=== PATIENT | female | born 1955 | race Caucasian/White ===

== ENCOUNTER 2017-11-02 15:21 | Inpatient (IN) | payer OTHER ==
[~2017-11-02] VITALS: Ht 160 cm; Wt 132.0 kg
[~2017-11-02 15:21] MED LIST: ADVAIR DISKUS 21 DSK INH; APA PO; ASPIRIN CHILDRE81 MG PO; AUGMENTIN 875 M1 TAB PO; CALCIUM PO; FLUOXETINE20 MG PO; GLUCOSAMINE SU500 M2 PO; HYDROCODON-ACETAMINO; HYDROCODONE PO; HYDRODIURIL 2525 MG PO; LISINOPRIL10 MG PO; MONTELUKAST SOD10 MG PO; MOTRIN 400MG (400 MG PO; NEXIUM 40MG40 MG PO; OXYCODONE5 MG PO; OXYCONTIN20 MG PO; PROZAC40 MG PO; Robitussin AC PO; SIMVASTATIN40 MG PO; VENTOLIN H0.09 MG/Ac INH; VICODIN7.5-300 PO
[2017-11-02 16:59] LABS: ABSOLUTE BASOPHIL COUNT 0.2 /CUMM (0.0-0.2); ABSOLUTE EOSINOPHIL COUNT 0.1 /CUMM (0.0-0.7); ABSOLUTE GRANULOCYTE CT 10.5 /CUMM (1.4-6.5); ABSOLUTE LYMPH COUNT 2.3 /CUMM (1.2-3.4); ABSOLUTE MONOCYTE COUNT 1.1 /CUMM (0.10-0.60); BASOPHIL % 1.1 % (0.0-2.0); EOSINOPHIL % 0.5 % (0-5); GRANULOCYTE % 74.4 % (42.2-75.2); MEAN CORPUSCULAR HGB 29.1 PG (27.0-31.0); MEAN CORPUSCULAR HGB CONC 33.4 G/DL (33.0-37.0); MEAN PLATELET VOLUME 8.2 FL (7.4-10.4); PLATELET COUNT 405 /CUMM (130-400); RBC DISTRIBUTION WIDTH 13.8 % (11.5-14.5); RED BLOOD CELL CT 4.49 /CUMM (4.20-5.40); WHITE BLOOD CELL COUNT 14.1 /CUMM (4.8-10.8)
--- NOTE | 2017-11-02 17:15 | ED SKIN/ALLERGY COMPLAINT ---
History of Present Illness General Chief Complaint: General Adult Stated Complaint: INFECTION AT INJECTION SITE Source: patient Exam Limitations: no limitations Vital Signs & Intake/Output Vital Signs & Intake/Output Vital Signs Date Time Temp Pulse Resp B/P B/P Pulse O2 O2 Flow FiO2 Mean Ox Delivery Rate 11/03 0629 97.8 60 18 114/68 95 Room Air 11/02 2127 98.1 78 20 130/72 98 Room Air 11/028 97.1 80 18 114/60 97 Room Air 11/02 1833 84 18 124/60 97 11/02 1534 98.3 81 15 137/86 98 Room Air Room Air ED Intake and Output 11/03 0000 11/02 1200 Intake Total 340 Output Total Balance 340 Intake, IV 100 Intake, Oral 240 Patient 291 lb Weight Weight Reported by Patient Measurement Method Triage Note: PT TO ED FOR C/C OF ?ABCESS TO R BUTT CHEEK AREA. PT HAD AN INJECTION DONE FOR HER BACK LAST SATURDAY AND PAIN STARTED SATURDAY. PT SPOKE WITH HER DOCTOR AND PUT PT ON ANTIBIOTICS (PT HAS BEEN ON ANTIBIOTICS X 48 HOURS). PT NOT SEEING AN IMPROVEMENT AND REPORTS ITS GETTING WORSE. PT REPORTS SUBJECTIVE 100.2-100.4 TEMPS AT HOME. AFEBRILE IN TRIAGE. Triage Nurses Notes Reviewed? yes Onset: Gradual Duration: getting worse Timing: recent history Severity: moderate Severity Numbers: 5 Location: torso HPI: Patient is a 62-year-old female with a past medical history of chronic back pain , hyperlipidemia, depression, hypertension, GERD and COPD and sleep apnea who presents emergency room saying that 8 days ago patient had her first injection to her RIGHT LATERAL back/MUSCLE REGION performed (OF UNKNOWN MEDICATION) by her painter spray with the injection was to the right lateral aspect of her lumbar spine where she states that the procedure went well however 2 days later on Saturday patient began having gradual onset of gluteal right-sided pain and swelling or patient followed up with her primary care doctor on October 31, 3 days ago and was concerns of infection in which she was administered Keflex. Patient has been compliant with medications and states that today she had a 100.5 temperature and worsening pain and swelling noted by . Patient denies any worsening back pain from her baseline (Kirstie CROW,Ariel) Allergies Coded Allergies: ceftriaxone (Intermediate, ITCHY, RED LINE UP ARM 11/02/17) sulfite (Intermediate, HIVES 11/02/17) Reconcile Medications Albuterol Sulfate (Proair Hfa) 90 MCG HFA.AER.AD 2 PUF INH AD PRN RESP. ( Reported) Alprazolam 0.5 MG TABLET 1 TAB PO AD PRN ANXIETY (Reported) Aspirin (Ecotrin*) 81 MG TABLET.DR 1 TAB PO DAILY HEART/BLOOD (Reported) Calcium (Elemental-Fr Calcarb) (Calcium Carbonate) 600 MG CALCIUM (1,500 MG) TABLET 2 TAB PO DAILY SUPPLEMENT (Reported) Cephalexin 500 MG CAPSULE 1 CAP PO Q6H ANTIBIOTIC (Reported) Cetirizine HCl (Zyrtec) 10 MG TABLET 1 TAB PO QAM ALLERGIES (Reported) Cyclobenzaprine HCl 5 MG TABLET 1 TAB PO TID PRN MUSCLE SPASMS (Reported) Docusate Sodium (Colace Clear) 50 MG CAPSULE 250 MG PO BID STOOL SOFTENER ( Reported) Ergocalciferol (Vitamin D2) (Vitamin D2) 50,000 UNIT CAPSULE 1 CAP PO QSUN SUPPLEMENT (Reported) Esomeprazole (Nexium) 40 MG CAPSULE.DR 1 CAP PO QAM GI (Reported) Fluoxetine HCl 20 MG CAPSULE 1 CAP PO QAM MENTAL HEALTH (Reported) Fluticasone/Salmeterol (Advair 250-50 Diskus) 250 MCG-50 MCG/DOSE BLST.W.DEV 1 PUF INH BID RESP. (Reported) Glucosamine Sulfate 1,000 MG CAPSULE 1 CAP PO BID SUPPLEMENT (Reported) Hydrochlorothiazide 25 MG TABLET 1 TAB PO QAM BP (Reported) Lidocaine/Prilocaine (Lidocaine-Prilocaine Cream) 2.5 %-2.5 % CREAM..G. 1 NANCY TOP AD PRN BACK PAIN (Reported) Lisinopril 10 MG TABLET 1 TAB PO QAM BP (Reported) Montelukast Sodium 10 MG TABLET 1 TAB PO QPM RESP. (Reported) Multiple Vitamin (Multivitamins) 1 EACH TABLET 1 TAB PO QAM SUPPLEMENT ( Reported) Oxycodone HCl (Oxycontin) 20 MG TAB.ER.12H 1 TAB PO BID PAIN (Reported) Oxycodone HCl/Acetaminophen (Percocet 7.5-325 MG Tablet) 7.5 MG-325 MG TABLET 1 TAB PO Q4H PRN PAIN (Reported) Pregabalin (Lyrica) 75 MG CAPSULE 1 CAP PO TID NERVE PAIN (Reported) Sennosides (Senna) 8.6 MG TABLET 2 TAB PO BID GI (Reported) Simvastatin (Simvastatin*) 40 MG TABLET 1 TAB PO QPM CHOLESTEROL (Reported) (Karly PEDERSEN,Mir Goldberg) Past History Travel History Traveled to [place] past 21 day No Medical History Any Pertinent Medical History? see below for history EENT: allergies Cardiovascular: hypertension, hyperlipidemia Respiratory: asthma Gastrointestinal: GERD Musculoskeletal: CHRONIC LOW BACK PAIN Psychiatric: anxiety Blood Disorders: NONE Cancer(s): NONE History of MRSA: No History of VRE: No History of CDIFF: No Influenza Vaccine: 08/04/14 Surgical History Surgical History: non-contributory Psychosocial History Who do you live with Family Services at Home None What is your primary language Occitan Tobacco Use: Quit >30 days ago ETOH Use: denies use Illicit Drug Use: denies illicit drug use Family History Family History, If Any: FATHER FH: pancreatic cancer, Onset: 60+. UNCLE FH: lung cancer, Onset: 60+. FH: pancreatic cancer, Onset: 60+. MOTHER FH: diabetes mellitus MOTHER Hx Contributory? No (Ariel Trejo) Review of Systems Review of Systems Constitutional: Reports: see HPI, fever. EENTM: Reports: no symptoms. Respiratory: Reports: no symptoms. Cardiovascular: Reports: no symptoms. GI: Reports: no symptoms. Genitourinary: Reports: no symptoms. Musculoskeletal: Reports: no symptoms. Skin: Reports: see HPI. Neurological/Psychological: Reports: no symptoms. Hematologic/Endocrine: Reports: no symptoms. Immunologic/Allergic: Reports: no symptoms. All Other Systems: Reviewed and Negative (Ariel Trejo) Physical Exam Physical Exam General Appearance: no apparent distress, obese Head: atraumatic, normal appearance, active bleeding, evidence of injury, Waterman 's Sign, contusions, ecchymosis, flap, lacerations, raccoon eyes, swelling, tenderness Eyes: Bilateral: normal appearance. Ears, Nose, Throat: hearing grossly normal Neck: normal inspection Respiratory: no respiratory distress Cardiovascular: regular rate/rhythm Extremities: normal capillary refill, normal range of motion Neurologic/Psych: no motor/sensory deficits, awake Skin: intact Diagram Body: 1) Noted erythema warmth and tenderness no fluctuance no induration skin intact no discharge (Ariel Trejo) Progress Differential Diagnosis: abscess/cellulitis, anaphylaxis, drug reaction, shingles , urticaria Plan of Care: Orders Procedure Date/time Status Heart Healthy Diet 11/03 B Active US-SUPERFICIAL IMAGING EXTREMI 11/03 0600 Active CBC WITHOUT DIFFERENTIAL 11/03 06 Active BASIC ELECTROLYTES PLUS BUN&CR 11/03 0600 Active MISSING MEDICATION FORM 11/03 0030 Active Vital Signs 11/02 2352 Active Teach/Educate 11/02 2352 Active Pain Treatment and Response 11/02 2352 Active Nutritional Intake, Monitor 11/02 2352 Active Isolation 11/02 2352 Active Intake & Output 11/02 235 Active Patient Care Conference 11/02 235 Active Activity/Ambulation 11/02 235 Active Vital Signs 11/02 2122 Active Teach/Educate 11/02 2122 Active Pain Treatment and Response 11/02 2122 Active Nutritional Intake, Monitor 11/02 2122 Active Isolation 11/02 2122 Active Intake & Output 11/02 2122 Active Patient Care Conference 11/02 2122 Active Activity/Ambulation 11/02 2122 Active Patient Data 11/02 1913 Active ED Holding Orders 11/02 1908 Active Admit to inpatient 11/02 1908 Active Vital Signs 11/02 1908 Active Code Status 11/02 1908 Active Intake & Output 11/02 1834 Active EKG 11/02 1727 Active BLOOD CULTURE 11/02 1623 Active COMPREHENSIVE METABOLIC PANEL 11/02 1622 Complete CBC WITHOUT DIFFERENTIAL 11/02 1622 Complete TRC EVALUATION (GEN) 11/02 UNK Active VTE Mechanical Prophylaxis 11/02 UNK Active Current Medications Sig/J Luis Start time Last Medication Dose Stop Time Status Admin Montelukast Sodium 10 MG QPM 11/03 2200 AC (Singulair) Atorvastatin Calcium 40 MG 1700 11/03 1700 AC (Lipitor) Aspirin Buffered 81 MG DAILY 11/03 1000 AC (Ecotrin) Budesonide/ 2 PUF BID 11/03 1000 AC Formoterol Fumarate (Symbicort) Enoxaparin Sodium 40 MG DAILY 11/03 1000 AC (Lovenox) Fluoxetine HCl 20 MG QAM 11/03 1000 AC (Prozac) Hydrochlorothiazide 25 MG QAM 11/03 1000 AC (Hydrodiuril) Lisinopril 10 MG QAM 11/03 1000 AC (Prinivil) Oxycodone HCl 20 MG BID 11/03 1000 AC (OxyCONTIN) Pregabalin 75 MG TID 11/03 1000 AC (Lyrica) Omeprazole 40 MG DAILY AC 11/03 0700 AC 11/03 (Prilosec) 0552 Heparin Sodium 5,000 UNIT Q8 11/03 06 CAN (Porcine) Ampicillin Sodium/ 1,500 MG Q6 11/02 2359 AC 11/03 Sulbactam Sodium 0551 (Unasyn) Sodium Chloride 100 ML (Normal Saline 0.9%) Alprazolam 0.5 MG AT BEDTIME NEED.. 11/02 2300 AC (Xanax) 11/09 2258 Cyclobenzaprine HCl 5 MG TID PRN 11/02 2300 AC (Flexeril 5MG Tab) Albuterol Sulfate 2 PUF Q4-6 PRN PRN 11/02 2245 AC (Ventolin) Morphine Sulfate 2 MG Q6P PRN 11/02 1945 AC 11/03 (Morphine) 0110 Oxycodone/ 1.5 TAB Q4P PRN 11/02 1945 AC Acetaminophen (Percocet) Oxycodone HCl 7.5 MG ONCE ONE 11/02 1930 CAN (Roxicodone) 11/02 1931 Laboratory Tests 11/02/171644: Anion Gap 12, Estimated GFR > 60, BUN/Creatinine Ratio 25.0, Glucose 104 H, Calcium 10.0, Total Bilirubin 0.5, AST 29, ALT 37, Alkaline Phosphatase 112, Total Protein 7.2, Albumin 3.9, Globulin 3.3, Albumin/Globulin Ratio 1.2, CBC w Diff NO MAN DIFF REQ, RBC 4.49, MCV 87.0, MCH 29.1, RDW 13.8, MPV 8.2, Gran % 74.4, Lymphocytes % 16.4 L, Monocytes % 7.6, Eosinophils % 0.5, Basophils % 1.1 , Absolute Granulocytes 10.5 H, Absolute Lymphocytes 2.3, Absolute Monocytes 1.1 H, Absolute Eosinophils 0.1, Absolute Basophils 0.2, PUBS MCHC 33.4 Microbiology 11/02 1750 BLOOD: Blood Culture - RECD 11/02 1645 BLOOD: Blood Culture - RECD Other differential diagnoses include herpes zoster due to the dermatomal pattern of the erythema however no vesicular findings were noted on exam No concerns of discitis or spinal abscess however this is of my differential. The needle injection site is unremarkable with no surrounding warmth erythema or tenderness Patient has failed outpatient treatment of antibiotics for 3 days and which patient has worsening expansion of her redness swelling and cellulitis and had fever prior to arrival MINIMAL concerns at this time of fluctuance or abscess however this is of my differential diagnosis which patient may require ultrasound or further imaging Initial ED EKG: normal intervals, normal p-waves, normal QRS complex, 79 BPM (Ariel Trejo) Departure Departure Disposition: STILL A PATIENT Condition: Stable Clinical Impression Primary Impression: Cellulitis of buttock, right Referrals: Jose Jernigan MD (PCP/Family) Departure Forms: Customer Survey General Discharge Information Admission Note Spoke With: Matt PEDERSEN,Yara Documentation of Exam: Documentation of any treatments & extenuating circumstances including Concerns Regarding Discharge (functional status, medication knowledge or non-compliance, living conditions, etc.) that warrant an admission rather than observation: [ Patient requires IV antibiotics, repeat labs, infectious disease consultation Patient has failed outpatient treatment of antibiotics prior to arrival] (Ariel Trejo) PA/PRODUCT MGMT DEV MANAGER Co-Sign Statement Statement: ED Attending supervision documentation- [X] I saw and evaluated the patient. I have also reviewed all the pertinent lab results and diagnostic results. I agree with the findings and the plan of care as documented in the PA's/PRODUCT MGMT DEV MANAGER's documentation. X[X] I have reviewed the ED Record and agree with the PA's/PRODUCT MGMT DEV MANAGER's documentation. [] Additions or exceptions (if any) to the PAs/PRODUCT MGMT DEV MANAGER's note and plan are summarized below: [FAILED OUTPATIENT ABX, ADMIT FOR IV ABX, FOLLOW UP CXS, IV FLUIDS] (Karly PEDERSEN,Mir Goldberg)
--- NOTE | 2017-11-02 20:03 | Admission Certification ---
Admission Certification Certification Statement - As attending physician, I certify that at the time of - admission, based on clinical presentation, severity of - symptoms, need for further diagnostic testing and - therapeutic interventions, and risk of adverse outcomes - without in-hospital treatment, in my clinical assessment, - this patient requires an acute hospital stay for a minimum - of two nights or longer. I have also considered psychsocial - factors such as support system, advanced age, financial - issues, cognitive issues, and failed out-patient treatments, - past re-admission history, safety of patient, and lack of - compliance as applicable. Specific rationale supporting this admission is: Right buttock/ thigh postero-inferior aspect cellulitis, failed outpatient antibiotics.
[2017-11-02] MEDS ORDERED: FLUOXETINE HCL20 M2 PO (20:15)
[2017-11-02] MEDS ORDERED: HYDROCHLOROTHIA25 M1 PO (20:17)
[2017-11-02] MEDS ORDERED: CEPHALEXIN500 M3 PO (20:17)
[2017-11-02] MEDS ORDERED: LIDOCAINE-PRILO30 GM TOP (20:18)
[2017-11-02] MEDS ORDERED: ALPRAZOLAM0.5 M4 PO (20:18)
[2017-11-02] MEDS ORDERED: NEXIUM40 M1 PO (20:19)
[2017-11-02] MEDS ORDERED: LISINOPRIL10 M1 PO (20:19)
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
[2017-11-02] MEDS ORDERED: ADVAIR 250-501 EACH INH (20:20)
[2017-11-02] MEDS ORDERED: MONTELUKAST SOD10 M1 PO (20:21)
[2017-11-02] MEDS ORDERED: SIMVASTATIN40 M1 PO (20:21)
[2017-11-02] MEDS ORDERED: PROAIR HFA8.5 GM INH (20:21)
[2017-11-02] MEDS ORDERED: ZYRTEC10 M3 PO (20:22)
[2017-11-02] MEDS ORDERED: ASPIRIN EC81 M1 PO (20:23)
[2017-11-02] MEDS ORDERED: COLACE CLEAR50 MG PO (20:24)
[2017-11-02] MEDS ORDERED: SENNA8.6 M3 PO (20:25)
[2017-11-02] MEDS ORDERED: CALCIUM CARBON600 M1 PO (20:26)
[2017-11-02] MEDS ORDERED: GLUCOSAMINE S1000 MG PO (20:26)
[2017-11-02] MEDS ORDERED: VITAMIN D250000 UNIT PO (20:27)
[2017-11-02] MEDS ORDERED: MULTIVITAMINS1 EAC9 PO (20:27)
[2017-11-02] MEDS ORDERED: PERCOCET 7.5-31 EACH PO (20:28)
[2017-11-02] MEDS ORDERED: OXYCONTIN20 M1 PO (20:29)
[2017-11-02] MEDS ORDERED: CYCLOBENZAPRINE5 M2 PO (20:30)
[2017-11-02] MEDS ORDERED: LYRICA75 M1 PO (20:31)
[2017-11-02 21:27] VITALS: BP 130/72
[2017-11-03 06:29] VITALS: BP 114/68
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
[2017-11-03 09:15] LABS: ABSOLUTE BASOPHIL COUNT 0.1 /CUMM (0.0-0.2); ABSOLUTE EOSINOPHIL COUNT 0.1 /CUMM (0.0-0.7); ABSOLUTE GRANULOCYTE CT 8.7 /CUMM (1.4-6.5); ABSOLUTE LYMPH COUNT 2.5 /CUMM (1.2-3.4); ABSOLUTE MONOCYTE COUNT 0.7 /CUMM (0.10-0.60); BASOPHIL % 0.4 % (0.0-2.0); EOSINOPHIL % 0.7 % (0-5); GRANULOCYTE % 72.5 % (42.2-75.2); HEMATOCRIT 37.9 % (37-47); MEAN CORPUSCULAR HGB 29.3 PG (27.0-31.0); MEAN CORPUSCULAR HGB CONC 33.2 G/DL (33.0-37.0); MEAN CORPUSCULAR VOLUME 88.3 FL (81.0-99.0); MEAN PLATELET VOLUME 8.9 FL (7.4-10.4); PLATELET COUNT 292 /CUMM (130-400); RED BLOOD CELL CT 4.29 /CUMM (4.20-5.40)
--- NOTE | 2017-11-03 14:09 | ULTRASOUND REPORT ---
EXAMINATION: US SUPERFICIAL IMAGING, EXTREMITY CLINICAL INFORMATION: Right gluteal cellulitis. COMPARISON: None TECHNIQUE: Targeted ultrasound of the gluteal region corresponding to the site of right gluteal inflammation, as was pointed out by the patient at the time of the examination. FINDINGS: Corresponding to the site of right gluteal inflammation, redness as was pointed out by the patient at the time of the examination, there is mild diffuse cutaneous, subcutaneous thickening and heterogenicity present, most consistent with cellulitis. Specifically, no underlying focal fluid collection identified. IMPRESSION: No sonographic evidence of any right gluteal abscess.
[2017-11-03 15:36] VITALS: BP 106/60
[2017-11-03 22:48] VITALS: BP 120/80
[2017-11-04 06:53] VITALS: BP 114/66
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
[2017-11-04 09:35] LABS: ABSOLUTE BASOPHIL COUNT 0 /CUMM (0.0-0.2); ABSOLUTE EOSINOPHIL COUNT 0.1 /CUMM (0.0-0.7); ABSOLUTE GRANULOCYTE CT 5.8 /CUMM (1.4-6.5); ABSOLUTE LYMPH COUNT 2.5 /CUMM (1.2-3.4); ABSOLUTE MONOCYTE COUNT 0.3 /CUMM (0.10-0.60); BASOPHIL % 0.4 % (0.0-2.0); GRANULOCYTE % 66.3 % (42.2-75.2); HEMATOCRIT 35.3 % (37-47); MEAN CORPUSCULAR HGB 29.6 PG (27.0-31.0); MEAN CORPUSCULAR HGB CONC 33.6 G/DL (33.0-37.0); MEAN CORPUSCULAR VOLUME 88.2 FL (81.0-99.0); MEAN PLATELET VOLUME 8.6 FL (7.4-10.4); PLATELET COUNT 356 /CUMM (130-400); RBC DISTRIBUTION WIDTH 13.8 % (11.5-14.5); RED BLOOD CELL CT 4.01 /CUMM (4.20-5.40); WHITE BLOOD CELL COUNT 8.8 /CUMM (4.8-10.8)
[2017-11-04 15:09] VITALS: BP 124/63
--- NOTE | 2017-11-04 18:01 | Patient Discharge Instructions ---
Discharge Instructions General Discharge Information You were seen/treated for: Cellulitis of the right buttock region Failed outpatient antibiotics S/P pain injection for sciatica Chronic back pain ROMI on CPAP Special Instructions: - Please follow up with your primary care physician within 1-2 week of discharge. Inform your primary care physician of this admission to [facility]. - Continue your current medications per discharge instructions. - Please watch for these problems: Fever, Chills, Nausea, Vomiting, Shortness of Breath, Productive Cough, Chest Pain/Discomfort, Abdominal Pain, Active Bleeding or Bloody urine/stool. Diet Continue normal diet: Yes Activity Full Activity/No Limits: Yes Acute Coronary Syndrome Inclusion Criteria At DC or during hospital stay patient has or had the following: ACS DIAGNOSIS No Discharge Core Measures Meds if any: Prescribed or Continued at Discharge Meds if any: NOT Prescribed or Continued at Discharge Congestive Heart Failure Inclusion Criteria At DC or during hospital stay patient has or had the following: CHF DIAGNOSIS No Discharge Core Measures Meds if any: Prescribed or Continued at Discharge Meds if any: NOT Prescribed or Continued at Discharge Cerebrovascular accident Inclusion Criteria At DC or during hospital stay patient has or had the following: CVA/TIA Diagnosis No Discharge Core Measures Meds if any: Prescribed or Continued at Discharge Meds if any: NOT Prescribed or Continued at Discharge Venous thromboembolism Inclusion Criteria VTE Diagnosis No VTE Type NONE VTE Confirmed by (Test) NONE Discharge Core Measures - Per Current guidelines, there needs to be overlap - treatment for the first 5 days of Warfarin therapy. - If discharged on Warfarin prior to 5 days of - overlap therapy, the patient will need to be - assessed for post discharge needs including - *Post discharge parental anticoagulation - *Warfarin and/or parental anticoagulation education - *Follow up date to check INR post discharge At least 5 days overlap therapy as Inpatient No Meds if any: Prescribed or Continued at Discharge Note: Overlap Therapy is Warfarin and Anticoagulant Meds if any: NOT Prescribed or Continued at Discharge
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
[2017-11-04 22:17] VITALS: BP 110/70
[2017-11-05 07:01] VITALS: BP 118/70
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
[2017-11-05 09:02] LABS: ABSOLUTE BASOPHIL COUNT 0.1 /CUMM (0.0-0.2); ABSOLUTE EOSINOPHIL COUNT 0.1 /CUMM (0.0-0.7); ABSOLUTE GRANULOCYTE CT 4.8 /CUMM (1.4-6.5); ABSOLUTE LYMPH COUNT 2.4 /CUMM (1.2-3.4); ABSOLUTE MONOCYTE COUNT 0.7 /CUMM (0.10-0.60); BASOPHIL % 0.7 % (0.0-2.0); GRANULOCYTE % 59.9 % (42.2-75.2); HEMATOCRIT 33.3 % (37-47); MEAN CORPUSCULAR HGB 28.9 PG (27.0-31.0); MEAN CORPUSCULAR HGB CONC 32.7 G/DL (33.0-37.0); MEAN CORPUSCULAR VOLUME 88.5 FL (81.0-99.0); MEAN PLATELET VOLUME 8.3 FL (7.4-10.4); PLATELET COUNT 368 /CUMM (130-400); RBC DISTRIBUTION WIDTH 13.5 % (11.5-14.5); RED BLOOD CELL CT 3.77 /CUMM (4.20-5.40); WHITE BLOOD CELL COUNT 8.1 /CUMM (4.8-10.8)
[2017-11-05] MEDS ORDERED: CEPHALEXIN500 M3 PO ×2 (13:30→13:49)
[2017-11-05 15:16] VITALS: BP 138/60
== END 2017-11-05 15:15 | DRG 603 ==
LOC: ERH 15:21 → 2NA 19:08 → ERHI 19:08 → ENRESERV 19:46 → ENTRNSPT 20:34 → EDTRNSPTSTS 20:50 → 2NA 21:04 → CMPTRNSPT 21:28 → 2NA 11-05 07:58 → ENPENDDIS 11-05 13:54 → 2NA 11-05 15:15
PROVIDERS: Internal Medicine; Student in an Organized Health Care Education/Training Program
DX: L03.317 Cellulitis of buttock (principal); E66.01 Morbid (severe) obesity due to excess calories; Z68.43 Body mass index [BMI] 50.0-59.9, adult; F32.9 Major depressive disorder, single episode, unspecified; G47.33 Obstructive sleep apnea (adult) (pediatric); M54.30 Sciatica, unspecified side; I10 Essential (primary) hypertension; J44.9 Chronic obstructive pulmonary disease, unspecified; G89.29 Other chronic pain; M54.9 Dorsalgia, unspecified; K21.9 Gastro-esophageal reflux disease without esophagitis
CPT/HCPCS: 2NAP; 36415; 76881; 82436; 87040; 93005; 93010; J1644; J1650; J3490

== ENCOUNTER 2017-11-09 11:41 | Inpatient (IN) | payer OTHER ==
[~2017-11-09] VITALS: Ht 160 cm; Wt 130.9 kg
[~2017-11-09 11:41] MED LIST changes: +ADVAIR 250-501 EACH INH; +ALPRAZOLAM0.5 M4 PO; +ASPIRIN EC81 M1 PO; +CALCIUM CARBON600 M1 PO; +CEPHALEXIN500 M3 PO; +COLACE CLEAR50 MG PO; +CYCLOBENZAPRINE5 M2 PO; +FLUOXETINE HCL20 M2 PO; +GLUCOSAMINE S1000 MG PO; +HYDROCHLOROTHIA25 M1 PO; +LIDOCAINE-PRILO30 GM TOP; +LISINOPRIL10 M1 PO; +LYRICA75 M1 PO; +MONTELUKAST SOD10 M1 PO; +MULTIVITAMINS1 EAC9 PO; +NEXIUM40 M1 PO; +OXYCONTIN20 M1 PO; +PERCOCET 7.5-31 EACH PO; +PROAIR HFA8.5 GM INH; +SENNA8.6 M3 PO; +SIMVASTATIN40 M1 PO; +VITAMIN D250000 UNIT PO; +ZYRTEC10 M3 PO
--- NOTE | 2017-11-09 12:13 | ED SKIN/ALLERGY COMPLAINT ---
See Addendum History of Present Illness General Chief Complaint: Skin Rash/ Abcess Stated Complaint: ABCESS Source: patient, old records Exam Limitations: no limitations Allergies Coded Allergies: ceftriaxone (Intermediate, ITCHY, RED LINE UP ARM 11/02/17) sulfite (Intermediate, HIVES 11/02/17) Reconcile Medications Albuterol Sulfate (Proair Hfa) 90 MCG HFA.AER.AD 2 PUF INH AD PRN RESP. ( Reported) Alprazolam 0.5 MG TABLET 1 TAB PO AD PRN ANXIETY (Reported) Aspirin (Ecotrin*) 81 MG TABLET.DR 1 TAB PO DAILY HEART/BLOOD (Reported) Calcium (Elemental-Fr Calcarb) (Calcium Carbonate) 600 MG CALCIUM (1,500 MG) TABLET 2 TAB PO DAILY SUPPLEMENT (Reported) Cephalexin 500 MG CAPSULE 1 CAP PO Q6H Cellulitis . Cetirizine HCl (Zyrtec) 10 MG TABLET 1 TAB PO QAM ALLERGIES (Reported) Cyclobenzaprine HCl 5 MG TABLET 1 TAB PO TID PRN MUSCLE SPASMS (Reported) Docusate Sodium (Colace Clear) 50 MG CAPSULE 250 MG PO BID STOOL SOFTENER ( Reported) Ergocalciferol (Vitamin D2) (Vitamin D2) 50,000 UNIT CAPSULE 1 CAP PO QSUN SUPPLEMENT (Reported) Esomeprazole (Nexium) 40 MG CAPSULE.DR 1 CAP PO QAM GI (Reported) Fluoxetine HCl 20 MG CAPSULE 1 CAP PO QAM MENTAL HEALTH (Reported) Fluticasone/Salmeterol (Advair 250-50 Diskus) 250 MCG-50 MCG/DOSE BLST.W.DEV 1 PUF INH BID RESP. (Reported) Glucosamine Sulfate 1,000 MG CAPSULE 1 CAP PO BID SUPPLEMENT (Reported) Hydrochlorothiazide 25 MG TABLET 1 TAB PO QAM BP (Reported) Lidocaine/Prilocaine (Lidocaine-Prilocaine Cream) 2.5 %-2.5 % CREAM..G. 1 NANCY TOP AD PRN BACK PAIN (Reported) Lisinopril 10 MG TABLET 1 TAB PO QAM BP (Reported) Montelukast Sodium 10 MG TABLET 1 TAB PO QPM RESP. (Reported) Multiple Vitamin (Multivitamins) 1 EACH TABLET 1 TAB PO QAM SUPPLEMENT ( Reported) Oxycodone HCl (Oxycontin) 20 MG TAB.ER.12H 1 TAB PO BID PAIN (Reported) Oxycodone HCl/Acetaminophen (Percocet 7.5-325 MG Tablet) 7.5 MG-325 MG TABLET 1 TAB PO Q4H PRN PAIN (Reported) Pregabalin (Lyrica) 75 MG CAPSULE 1 CAP PO TID NERVE PAIN (Reported) Sennosides (Senna) 8.6 MG TABLET 2 TAB PO BID GI (Reported) Simvastatin (Simvastatin*) 40 MG TABLET 1 TAB PO QPM CHOLESTEROL (Reported) Triage Note: PT SIB DR BARROSO FOR R/O ABSCESS RIGHT BUTTOCKS. PER DR BARROSO, PT HAD EPIDURAL INJECTION TO THAT SITE HERE 2 WEEKS AGO DURING AN ADMISSION. THE AREA THEN DEVELOPED CELLULITIS AND WAS PUT ON KEFLEX. CAME BACK IN BECAUSE IT WASN'T GETTING BETTER WAS ADMITTED FOR IV ANTIBIOTICS, IT GOT BETTER NOW AREA IS REDDENED AGAIN WITH A LUMP Triage Nurses Notes Reviewed? yes Onset: Gradual Duration: week(s): (2-3), changing over time, continues in ED, getting worse Timing: single episode today Severity: moderate, severe Severity Numbers: 7 Location: RT BUTT Possible Factors: ABSCESS/CELLULITIS No Modifying Factors: none Associated Symptoms: swelling/mass/lumps, ERYTHEMA LMP (ages 10-50): post menopausal, unknown : No Patient currently breastfeeds: No HPI: 62-year-old female past medical history of obesity, hypertension, hyperlipidemia , chronic back pain presents for evaluation of swelling and redness on her right buttock. Patient states that about 3 weeks ago she had an IM injection in her right buttock. Several days after that she noticed an area of redness swelling and pain. She was put on cephalexin as an outpatient however the redness and pain continued to spread. She was admitted to the hospital here for 3 days given IV Unasyn. She was doing better and discharged again on oral Keflex. Initially she was doing well but several days later she began to notice worsening swelling spreading redness and pain again. She went to her primary care doctor today who sent her in for evaluation of a possible abscess. She reports low-grade fevers at home. She rates her pain as a 7 or 8 out of 10. She is on chronic high-dose opioid therapy for chronic back pain and this has not been working. She denies any discharge from the area, abdominal pain, chest pain, shortness of breath or trauma to the area. (Jose Luis Barillas) Vital Signs & Intake/Output Vital Signs & Intake/Output Vital Signs Date Time Temp Pulse Resp B/P B/P Pulse O2 O2 Flow FiO2 Mean Ox Delivery Rate 11/09 1336 98.6 79 20 119/58 97 Room Air 11/09 1148 99.5 97 20 113/78 97 Room Air (Martha PEDERSEN,Kelvin Huff) Past History Travel History Traveled to [place] past 21 day No Medical History Any Pertinent Medical History? see below for history EENT: allergies Cardiovascular: hypertension, hyperlipidemia Respiratory: asthma Gastrointestinal: GERD Hepatic: NONE Renal: NONE Musculoskeletal: CHRONIC LOW BACK PAIN Psychiatric: anxiety Blood Disorders: NONE Cancer(s): NONE History of MRSA: No History of VRE: No History of CDIFF: No Influenza Vaccine: 08/04/17 Surgical History Surgical History: non-contributory Psychosocial History Who do you live with Family Services at Home None What is your primary language [place] Tobacco Use: Quit >30 days ago ETOH Use: denies use Illicit Drug Use: denies illicit drug use Family History Family History, If Any: FATHER FH: pancreatic cancer, Onset: 60+. UNCLE FH: lung cancer, Onset: 60+. FH: pancreatic cancer, Onset: 60+. MOTHER FH: diabetes mellitus MOTHER Hx Contributory? No (Jose Luis Barillas) Review of Systems Review of Systems Constitutional: Reports: fever, malaise. EENTM: Reports: no symptoms. Respiratory: Reports: no symptoms. Cardiovascular: Reports: no symptoms. GI: Reports: no symptoms. Genitourinary: Reports: no symptoms. Musculoskeletal: Reports: no symptoms. Skin: Reports: see HPI, erythema. Neurological/Psychological: Reports: no symptoms. Hematologic/Endocrine: Reports: no symptoms. Immunologic/Allergic: Reports: no symptoms. All Other Systems: Reviewed and Negative (Jose Luis Barillas) Physical Exam Physical Exam General Appearance: well developed/nourished, no apparent distress, alert, awake Head: atraumatic, normal appearance Eyes: Bilateral: normal appearance, PERRL, EOMI. Ears, Nose, Throat: normal pharynx, normal ENT inspection, hearing grossly normal Neck: normal inspection, supple, full range of motion Respiratory: normal breath sounds, chest non-tender, no respiratory distress, lungs clear Cardiovascular: regular rate/rhythm, normal peripheral pulses Peripheral Pulses: 2+ radial (R), 2+ radial (L) Gastrointestinal: normal bowel sounds, soft, non-tender, no organomegaly Back: normal inspection, normal range of motion, no vertebral tenderness Extremities: normal inspection, normal range of motion, no edema Neurologic/Psych: no motor/sensory deficits, awake, alert, oriented x 3, normal gait Skin: intact, normal color, warm/dry Skin Problem Location: RT BUTTOCK Skin Problem Character: abcess, erythema Comments: Right buttock: There is a large area of erythema and swelling on the superior right buttock. No focal fluctuant areas. There is some induration. Exam is limited by body habitus. No focal fluctuant areas or discharge. No lymphatic streaking. I cannot palpate an abscess. (Jose M CROW,Jose Luis) Progress Differential Diagnosis: abscess/cellulitis, allergic reaction, PILONIDAL CYST, SEROMA, PELVIC ABSCESS, OSTEOMYELITIS Diagnostic Imaging: Viewed by Me: CT Scan. Discussed w/RAD: CT Scan. Radiology Impression: PATIENT: ASHWINI MEDRANO PRESENT AGE: 62 PATIENT ACCOUNT NO: [id number] : 56 LOCATION: [facility] ORDERING PHYSICIAN: Jose Luis CROW SERVICE DATE: 11/09/17 EXAM TYPE: CAT - CT PELVIS W IV CONTRAST EXAMINATION: CT PELVIS WITH IV CONTRAST CLINICAL INFORMATION: Pain. Erythema. Induration. Swelling right superior buttock. COMPARISON: Right gluteal ultrasound dated 11/03/2017. TECHNIQUE: Helical scanning was performed with submillimeter collimation through the pelvis with 95 mL of Optiray 320 intravenous contrast. Sagittal and coronal multiplanar 2-D reconstructions were obtained. DLP: 1305.89 mGy-cm FINDINGS: UTERUS AND ADNEXA: Uterus anteverted, mildly atrophic and otherwise unremarkable. Both ovaries symmetric in size and unremarkable. No adnexal mass. No significant free fluid in the cul-de-sac. KIDNEYS, URETERS, BLADDER: Bladder is decompressed and suboptimally assessed, but grossly unremarkable. Ureters are decompressed and no ureteral calculi are seen. Kidneys bilaterally are symmetric in size and unremarkable. No hydronephrosis or focal cystic or solid renal mass. No significant perinephric stranding. LIVER, SPLEEN, PANCREAS, GALLBLADDER: These organs are partially included and appear grossly unremarkable to the extent seen. BOWEL LOOPS/ABDOMINAL WALL: There is a moderate size midline umbilical hernia, containing fat only, measuring 4.1 x 4.0 x 4.0 cm in size. Small and large bowel loops are decompressed and aside from a few scattered sigmoid colonic diverticula are unremarkable. Radiopaque densities seen in the cecal base, likely representing prior appendectomy stable. No appendix is identified. Terminal ileum and included small bowel loops are unremarkable. LYMPHOVASCULAR STRUCTURES: Mild atherosclerotic calcifications of the aortoiliac vessels is seen. No pelvic or inguinal adenopathy is seen. No pelvic free fluid is noted. SOFT TISSUES/ABDOMINAL WALL: There is a large approximately 10.0 x 6.1 x 13.7 cm lobulated fluid collection seen in the subcutaneous fat of the right upper buttock, just to the right of midline, starting from the L4 level down to the mid sacrum. From the mid sacrum level 2 below the level of the pubic symphysis, incompletely included, is also a more laterally placed lobulated fluid collection in the right lower posterior buttock, measuring at least 10.9 x 6.8 x 9.0 cm. Both of these collections show a evolving thin capsule. No significant capsular enhancement is seen. No internal air locules are noted. OSSEOUS STRUCTURES: Moderate degenerative disc disease is seen at L2-L3 with disc space narrowing, vacuum disc phenomenon, vertebral endplate spurring. Moderate degenerative disc disease without vacuum disc phenomenon is seen at the lumbosacral junction. No suspicious bone findings. IMPRESSION: 1. 2 encapsulated fluid collections are seen in the posterior lateral soft tissues of the right buttock, consistent with seroma cavities or liquefied hematomas. No definite CT evidence of associated soft tissue emphysema or capsular wall thickening and enhancement is seen to suspect an abscess, but close clinical correlation is requested. Depending on clinical circumstances, sample aspiration could be performed. 2. Moderate-sized midline ventral wall umbilical hernia. DICTATED BY: Colten PEDERSEN,Shaila Cobb DATE/TIME DICTATED:11/09/171318 TISSUE SPECIALIST:JANESSA DATE/TIME TRANSCRIBED:11/09/171318 CONFIDENTIAL, DO NOT COPY WITHOUT APPROPRIATE AUTHORIZATION. (Jose M CROW,Jose Luis) Plan of Care: Orders Procedure Date/time Status LACTIC ACID 11/09 1511 Active BLOOD CULTURE 11/09 1353 Active BLOOD CULTURE 11/09 1211 Active LACTIC ACID 11/09 1211 Complete COMPREHENSIVE METABOLIC PANEL 11/09 1211 Complete CBC WITHOUT DIFFERENTIAL 11/09 1211 Complete Laboratory Tests 11/09/17 1237: Anion Gap 14, Estimated GFR > 60, BUN/Creatinine Ratio 16.7, Glucose 105 H, Lactic Acid 0.9, Calcium 9.6, Total Bilirubin 0.7, AST 33, ALT 44, Alkaline Phosphatase 97, Total Protein 6.7, Albumin 3.7, Globulin 3.0, Albumin/Globulin Ratio 1.2, CBC w Diff NO MAN DIFF REQ, RBC 4.07 L, MCV 87.0, MCH 28.9, RDW 13.7 , MPV 7.9, Gran % 82.3 H, Lymphocytes % 10.9 L, Monocytes % 6.3, Eosinophils % 0.2, Basophils % 0.3, Absolute Granulocytes 10.8 H, Absolute Lymphocytes 1.4, Absolute Monocytes 0.8 H, Absolute Eosinophils 0, Absolute Basophils 0, PUBS MCHC 33.2 Microbiology 11/09 1353 BLOOD: Blood Culture - ORD 11/09 1237 BLOOD: Blood Culture - RECD Patient seen and evaluated. She is nontoxic-appearing and has a low-grade temp of 99. Patient has been on oral cephalexin without improvement. There is spreading redness tenderness and swelling no focal fluctuant areas on exam. Patient will get a contrast CT to look for an abscess or fluid collection. Patient's white blood cell count is elevated to 13 this is up from 8 on her discharge date. There is also a left shift. Lactic acid is negative. CT scan shows 2 very large fluid collections on the right side of the lumbar and sacral spine. Differential includes abscess versus seroma. It is difficult to correlate this clinically due to the patient's body habitus. Surgery will be counseled FOR recommendations. Spoke with Dr. Bowman from surgery. He recommends admitting the patient for IV antibiotics and interventional radiology consult to find out exactly what this fluid collection is. Surgery cannot be counseled for drainage. Patient will be restarted on Unasyn. Infectious disease also paged to see if an antibiotic change should be made. Patient will be admitted to the hospital for further evaluation. She'll require IV antibiotics, IV pain meds, IV fluids, interventional radiology, surgical consult, infectious disease consult. Case discussed with Dr. Thomas he agrees. (Jose M CROW,Jose Luis) (Martha PEDERSEN,Kelvin Huff) Departure Departure Disposition: STILL A PATIENT Condition: Stable Clinical Impression Primary Impression: Cellulitis and abscess of buttock Referrals: Delon PEDERSEN,Jose Mcadams (PCP/Family) Departure Forms: Customer Survey General Discharge Information Admission Note Spoke With: Peter Ocampo MD Documentation of Exam: Documentation of any treatments & extenuating circumstances including Concerns Regarding Discharge (functional status, medication knowledge or non-compliance, living conditions, etc.) that warrant an admission rather than observation: [IV antibiotics, IV fluids, IV pain control, interventional radiology consult, surgical consult, infectious disease consult] (Jose Luis Barillas) PA/RIPENING ROOM ATTENDANT Co-Sign Statement Statement: ED Attending supervision documentation- [] I saw and evaluated the patient. I have also reviewed all the pertinent lab results and diagnostic results. I agree with the findings and the plan of care as documented in the PA's/RIPENING ROOM ATTENDANT's documentation. [] I have reviewed the ED Record and agree with the PA's/RIPENING ROOM ATTENDANT's documentation. I have reviewed this patient's labs and CAT scan report. Given the extensive nature of the fluid collections, surgical consultation will be obtained. [] Additions or exceptions (if any) to the PAs/RIPENING ROOM ATTENDANT's note and plan are summarized below: [] (Martha PEDERSEN,Kelvin Huff)
[2017-11-09 12:55] LABS: ABSOLUTE BASOPHIL COUNT 0 /CUMM (0.0-0.2); ABSOLUTE EOSINOPHIL COUNT 0 /CUMM (0.0-0.7); ABSOLUTE GRANULOCYTE CT 10.8 /CUMM (1.4-6.5); ABSOLUTE LYMPH COUNT 1.4 /CUMM (1.2-3.4); ABSOLUTE MONOCYTE COUNT 0.8 /CUMM (0.10-0.60); BASOPHIL % 0.3 % (0.0-2.0); EOSINOPHIL % 0.2 % (0-5); GRANULOCYTE % 82.3 % (42.2-75.2); HEMATOCRIT 35.4 % (37-47); MEAN CORPUSCULAR HGB 28.9 PG (27.0-31.0); MEAN CORPUSCULAR HGB CONC 33.2 G/DL (33.0-37.0); MEAN PLATELET VOLUME 7.9 FL (7.4-10.4); PLATELET COUNT 367 /CUMM (130-400); RBC DISTRIBUTION WIDTH 13.7 % (11.5-14.5); RED BLOOD CELL CT 4.07 /CUMM (4.20-5.40)
[2017-11-09 13:11] LABS: WHITE BLOOD CELL COUNT 13.2 /CUMM (4.8-10.8)
--- NOTE | 2017-11-09 13:39 | CT SCAN REPORT ---
EXAMINATION: CT PELVIS WITH IV CONTRAST CLINICAL INFORMATION: Pain. Erythema. Induration. Swelling right superior buttock. COMPARISON: Right gluteal ultrasound dated 11/03/2017. TECHNIQUE: Helical scanning was performed with submillimeter collimation through the pelvis with 95 mL of Optiray 320 intravenous contrast. Sagittal and coronal multiplanar 2-D reconstructions were obtained. DLP: 1305.89 mGy-cm FINDINGS: UTERUS AND ADNEXA: Uterus anteverted, mildly atrophic and otherwise unremarkable. Both ovaries symmetric in size and unremarkable. No adnexal mass. No significant free fluid in the cul-de-sac. KIDNEYS, URETERS, BLADDER: Bladder is decompressed and suboptimally assessed, but grossly unremarkable. Ureters are decompressed and no ureteral calculi are seen. Kidneys bilaterally are symmetric in size and unremarkable. No hydronephrosis or focal cystic or solid renal mass. No significant perinephric stranding. LIVER, SPLEEN, PANCREAS, GALLBLADDER: These organs are partially included and appear grossly unremarkable to the extent seen. BOWEL LOOPS/ABDOMINAL WALL: There is a moderate size midline umbilical hernia, containing fat only, measuring 4.1 x 4.0 x 4.0 cm in size. Small and large bowel loops are decompressed and aside from a few scattered sigmoid colonic diverticula are unremarkable. Radiopaque densities seen in the cecal base, likely representing prior appendectomy stable. No appendix is identified. Terminal ileum and included small bowel loops are unremarkable. LYMPHOVASCULAR STRUCTURES: Mild atherosclerotic calcifications of the aortoiliac vessels is seen. No pelvic or inguinal adenopathy is seen. No pelvic free fluid is noted. SOFT TISSUES/ABDOMINAL WALL: There is a large approximately 10.0 x 6.1 x 13.7 cm lobulated fluid collection seen in the subcutaneous fat of the right upper buttock, just to the right of midline, starting from the L4 level down to the mid sacrum. From the mid sacrum level 2 below the level of the pubic symphysis, incompletely included, is also a more laterally placed lobulated fluid collection in the right lower posterior buttock, measuring at least 10.9 x 6.8 x 9.0 cm. Both of these collections show a evolving thin capsule. No significant capsular enhancement is seen. No internal air locules are noted. OSSEOUS STRUCTURES: Moderate degenerative disc disease is seen at L2-L3 with disc space narrowing, vacuum disc phenomenon, vertebral endplate spurring. Moderate degenerative disc disease without vacuum disc phenomenon is seen at the lumbosacral junction. No suspicious bone findings. IMPRESSION: 1. 2 encapsulated fluid collections are seen in the posterior lateral soft tissues of the right buttock, consistent with seroma cavities or liquefied hematomas. No definite CT evidence of associated soft tissue emphysema or capsular wall thickening and enhancement is seen to suspect an abscess, but close clinical correlation is requested. Depending on clinical circumstances, sample aspiration could be performed. 2. Moderate-sized midline ventral wall umbilical hernia.
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
[2017-11-09 23:11] VITALS: BP 146/83
--- NOTE | 2017-11-10 00:07 | Cons- General Surgery ---
General Information and HPI Consulting Request Date of Consult: 11/09/17 Requested By: Peter Ocampo MD History of Present Illness: CC: Buttock inflammation HPI: 62-year-old nondiabetic ex-smoker on medications for COPD sleep apnea anxiety depression and GERD she also has chronic back pain for which she gets injections about 2 weeks ago she had one in her right buttock area got inflamed she was recently admitted here last week for some IV antibiotics ultrasound of the area was done did not show any collection she was discharged on antibiotics the pain and swelling seemed to improve briefly but she can back today because of increased redness swelling and tightness in the right buttock no fevers no sweats no shortness of breath it doesn't affect the way she walks but it is uncomfortable and certain positions she does not have any bleeding problems doesn't take any medications for anticoagulation denies any trauma to the area otherwise I[facility] No history of heart disease or issues with anesthesia. Surgical history includes right total knee replacement, carpal tunnel Allergies/Medications Allergies: Coded Allergies: ceftriaxone (Intermediate, ITCHY, RED LINE UP ARM 11/02/17) sulfite (Intermediate, HIVES 11/02/17) Home Med List: Albuterol Sulfate (Proair Hfa) 90 MCG HFA.AER.AD 2 PUF INH AD PRN RESP. ( Reported) Alprazolam 0.5 MG TABLET 1 TAB PO AD PRN ANXIETY (Reported) Aspirin (Ecotrin*) 81 MG TABLET.DR 1 TAB PO DAILY HEART/BLOOD (Reported) Calcium (Elemental-Fr Calcarb) (Calcium Carbonate) 600 MG CALCIUM (1,500 MG) TABLET 2 TAB PO DAILY SUPPLEMENT (Reported) Cephalexin 500 MG CAPSULE 1 CAP PO Q6H Cellulitis . Cetirizine HCl (Zyrtec) 10 MG TABLET 1 TAB PO QAM ALLERGIES (Reported) Cyclobenzaprine HCl 5 MG TABLET 1 TAB PO TID PRN MUSCLE SPASMS (Reported) Docusate Sodium (Colace Clear) 50 MG CAPSULE 250 MG PO BID STOOL SOFTENER ( Reported) Ergocalciferol (Vitamin D2) (Vitamin D2) 50,000 UNIT CAPSULE 1 CAP PO QSUN SUPPLEMENT (Reported) Esomeprazole (Nexium) 40 MG CAPSULE.DR 1 CAP PO QAM GI (Reported) Fluoxetine HCl 20 MG CAPSULE 1 CAP PO QAM MENTAL HEALTH (Reported) Fluticasone/Salmeterol (Advair 250-50 Diskus) 250 MCG-50 MCG/DOSE BLST.W.DEV 1 PUF INH BID RESP. (Reported) Glucosamine Sulfate 1,000 MG CAPSULE 1 CAP PO BID SUPPLEMENT (Reported) Hydrochlorothiazide 25 MG TABLET 1 TAB PO QAM BP (Reported) Lidocaine/Prilocaine (Lidocaine-Prilocaine Cream) 2.5 %-2.5 % CREAM..G. 1 NANCY TOP AD PRN BACK PAIN (Reported) Lisinopril 10 MG TABLET 1 TAB PO QAM BP (Reported) Montelukast Sodium 10 MG TABLET 1 TAB PO QPM RESP. (Reported) Multiple Vitamin (Multivitamins) 1 EACH TABLET 1 TAB PO QAM SUPPLEMENT ( Reported) Oxycodone HCl (Oxycontin) 20 MG TAB.ER.12H 1 TAB PO BID PAIN (Reported) Oxycodone HCl/Acetaminophen (Percocet 7.5-325 MG Tablet) 7.5 MG-325 MG TABLET 1 TAB PO Q4H PRN PAIN (Reported) Pregabalin (Lyrica) 75 MG CAPSULE 1 CAP PO TID NERVE PAIN (Reported) Sennosides (Senna) 8.6 MG TABLET 2 TAB PO BID GI (Reported) Simvastatin (Simvastatin*) 40 MG TABLET 1 TAB PO QPM CHOLESTEROL (Reported) Current Medications: I reviewed Current Medications Sig/J Luis Start time Last Medication Dose Route Stop Time Status Admin Acetaminophen 650 MG Q6P PRN 11/09 1645 AC PO Acetaminophen 1,000 MG Q6P PRN 11/09 1645 DC IV Acetaminophen 0 .STK-MED ONE 11/09 1252 DC IV Acetaminophen 1,000 MG ONCE ONE 11/09 1215 DC 11/09 N/A 1 UNIT IV 11/09 1229 1251 Alprazolam 0.5 MG DAILY NEEDED PRN 11/09 1830 AC PO 11/16 1829 Ampicillin Sodium/ 3,000 MG Q6H 11/09 2100 AC Sulbactam Sodium IV Sodium Chloride 100 ML Ampicillin Sodium/ 0 .STK-MED ONE 11/09 1441 DC Sulbactam Sodium .ROUTE Ampicillin Sodium/ 3,000 MG ONCE ONE 11/09 1400 DC 11/09 Sulbactam Sodium IV 11/09 1429 1453 Sodium Chloride 100 ML Atorvastatin Calcium 20 MG 1700 11/10 1700 AC PO Budesonide/ 2 PUF BID 11/09 2200 AC Formoterol Fumarate INH Calcium Carbonate 1,250 MG DAILY 11/10 1000 AC PO Cyclobenzaprine HCl 5 MG TID PRN 11/09 1830 AC PO Docusate Sodium 200 MG BID 11/09 2200 AC PO Ergocalciferol 50,000 IU QSUN 11/10 0700 AC PO Fluoxetine HCl 20 MG QAM 11/10 1000 AC PO Heparin Sodium 5,000 UNIT Q8 11/09 1630 DC (Porcine) SC Hydrochlorothiazide 25 MG QAM 11/10 1000 AC PO Lidocaine/Prilocaine 1 NANCY BID PRN 11/09 2200 AC TOP Lisinopril 10 MG QAM 11/10 1000 AC PO Loratadine 10 MG DAILY 11/10 1000 AC PO Montelukast Sodium 10 MG QPM 11/09 2200 AC PO Morphine Sulfate 0 .STK-MED ONE 11/09 2054 DC .ROUTE Morphine Sulfate 2 MG Q4P PRN 11/09 1645 AC 11/09 IV 205 Morphine Sulfate 0 .STK-MED ONE 11/09 1433 DC .ROUTE Morphine Sulfate 4 MG ONCE ONE 11/09 1400 DC 11/09 IV 11/09 1401 1453 Multivitamins 1 TAB QAM 11/10 1000 AC Therapeutic PO Naproxen 500 MG BID 11/09 220 AC PO Omeprazole 40 MG DAILY AC 11/10 0700 AC PO Oxycodone HCl 20 MG BID 11/09 2200 AC PO Oxycodone/ 1 TAB Q4P PRN 11/09 1830 AC 11/09 Acetaminophen PO 2201 Pregabalin 75 MG TID 11/09 1826 AC PO Senna 374 MG BID 11/09 220 AC PO Vancomycin HCl 2,000 MG Q12H 11/09 1800 AC 11/09 Sodium Chloride 500 ML IV 1838 Vancomycin HCl 1,000 MG DAILY 11/09 1632 DC Sodium Chloride 250 ML IV Past History Medical History Blood Transfusion Hx: No Neurological: peripheral neuropathy EENT: allergies Cardiovascular: hypertension, hyperlipidemia Respiratory: asthma Gastrointestinal: GERD Hepatic: NONE Renal: NONE Musculoskeletal: CHRONIC LOW BACK PAIN Psychiatric: anxiety Blood Disorders: NONE Cancer(s): NONE Surgical History Pertinent Surgical History: non-contributory Family History Relations & Conditions If Any: FATHER FH: pancreatic cancer, Onset: 60+. UNCLE FH: lung cancer, Onset: 60+. FH: pancreatic cancer, Onset: 60+. MOTHER FH: diabetes mellitus MOTHER Psychosocial History Where Do You Live? Home Who Do You Live With? spouse Services at Home: None Primary Language: Georgian Smoking Status: Former Smoker ETOH Use: denies use Illicit Drug Use: denies illicit drug use Functional Ability ADLs Independent: dressing, eating, toileting, bathing. Ambulation: independent IADLs Independent: shopping, housework, finances, food prep, telephone, transportation , medication admin. Review of Systems Review of Systems: Constitutional: No fever, sweats or weight loss ENMT: No sore throat Cardiovascular: No chest pain, palpitations or leg swelling Respiratory: No shortness of breath, cough, or sputum or dyspnea on exertion GI: No GERD or bleeding per rectum : No dysuria or hematuria Musculoskeletal: No new muscle weakness, bone or joint pain Skin / Breast: No jaundice, rashes or itching Psychiatric: No history of drug or alcohol abuse but does have a history of depression and anxiety Hematologic / lymphatic system: No problems with excessive bleeding, bruising, or blood clots Exam & Diagnostic Data Vital Signs and I&O I reviewed Vital Signs Date Time Temp Pulse Resp B/P B/P Pulse O2 O2 Flow FiO2 Mean Ox Delivery Rate 11/09 2311 99.3 93 20 146/83 96 Room Air 11/09 2008 97.6 71 16 118/62 97 Room Air 11/09 1800 98.6 56 16 149/64 94 Room Air 11/09 1508 98.5 73 18 132/68 97 Room Air 11/09 1336 98.6 79 20 119/58 97 Room Air 11/09 1148 99.5 97 20 113/78 97 Room Air I reviewed Intake & Output 11/09 1600 11/09 0811/09 0000 11/08 1600 11/08 0000 Intake Total Output Total Balance Patient 289 lb Weight Weight Reported by Patient Measurement Method Physical Exam: Constitutional: pleasant, no acute distress, conversant Eyes: sclera anicteric ENMT: ears and nose atraumatic, moist mucous membranes, good dentition, no lip lesions Neck: Supple, trachea is midline, no cervical or supraclavicular adenopathy and no palpable thyromegaly Cardiovascular: S1, S2, no murmurs, no peripheral edema Respiratory: clear to auscultation with normal respiratory effort and no intercostal retractions GI: abdomen soft, nontender, nondistended, no palpable hepatosplenomegaly Extremities / lymphatics: symmetrically warm, free range of motion no peripheral edema, no cervical, supraclavicular, axillary, or inguinal adenopathy Musculoskeletal: Did not evaluate gait and station, no digital cyanosis, good muscle strength and tone no atrophy, motor grossly 5 out of 5 throughout Skin: no jaundice, no rashes warm, nondiaphoretic, Right buttock is asymmetrically prominent to some mild erythema you could see where the injection site is and then laterally there is a little more blushing but no crepitus no fluctuance no skin necrosis there is a little bit of edema but no firm induration that area spans at least 15 cm Psychiatric: mood and affect are appropriate and alert and oriented to person place and time Last 24 Hours of Labs: I reviewed Laboratory Tests 11/09 11/09 1511 1237 Chemistry Sodium (137 - 145 mmol/L) 136 L Potassium (3.5 - 5.1 mmol/L) 3.7 Chloride (98 - 107 mmol/L) 97 L Carbon Dioxide (22 - 30 mmol/L) 25 Anion Gap (5 - 16) 14 BUN (7 - 17 mg/dL) 10 Creatinine (0.5 - 1.0 mg/dL) 0.6 Estimated GFR (>60 ml/min) > 60 BUN/Creatinine Ratio (7 - 25 %) 16.7 Glucose (65 - 99 mg/dL) 105 H Lactic Acid (0.7 - 2.1 mmol/L) Cancelled 0.9 Calcium (8.4 - 10.2 mg/dL) 9.6 Total Bilirubin (0.2 - 1.3 mg/dL) 0.7 AST (14 - 36 U/L) 33 ALT (9 - 52 U/L) 44 Alkaline Phosphatase (<127 U/L) 97 Total Protein (6.3 - 8.2 g/dL) 6.7 Albumin (3.5 - 5.0 g/dL) 3.7 Globulin (1.9 - 4.2 gm/dL) 3.0 Albumin/Globulin Ratio (1.1 - 2.2 %) 1.2 Hematology CBC w Diff NO MAN DIFF REQ WBC (4.8 - 10.8 /CUMM) 13.2 H RBC (4.20 - 5.40 /CUMM) 4.07 L Hgb (12.0 - 16.0 G/DL) 11.8 L Hct (37 - 47 %) 35.4 L MCV (81.0 - 99.0 FL) 87.0 MCH (27.0 - 31.0 PG) 28.9 RDW (11.5 - 14.5 %) 13.7 Plt Count (130 - 400 /CUMM) 367 MPV (7.4 - 10.4 FL) 7.9 Gran % (42.2 - 75.2 %) 82.3 H Lymphocytes % (20.5 - 51.1 %) 10.9 L Monocytes % (1.7 - 9.3 %) 6.3 Eosinophils % (0 - 5 %) 0.2 Basophils % (0.0 - 2.0 %) 0.3 Absolute Granulocytes (1.4 - 6.5 /CUMM) 10.8 H Absolute Lymphocytes (1.2 - 3.4 /CUMM) 1.4 Absolute Monocytes (0.10 - 0.60 /CUMM) 0.8 H Absolute Eosinophils (0.0 - 0.7 /CUMM) 0 Absolute Basophils (0.0 - 0.2 /CUMM) 0 PUBS MCHC (33.0 - 37.0 G/DL) 33.2 Assessment/Plan Assessment/Plan I reviewed today's CT scan on PACS myself showing 2 deep connected subcutaneous collections Impression hematoma vs pus. On exam and imaging it's not superficial it's been there for 2 weeks. First try minimally invasive to avoid the morbidity of an open wound which would be large and risky in her because of the thickness of the subcutaneous layer and the location of it, also the added risk of doing this with anesthesia along with her comorbidities, so please call IR and have them place a drain and send for culture if not successful she will need an incision Problem List: 1. Cellulitis and abscess of buttock 2. COPD (chronic obstructive pulmonary disease) 3. GERD (gastroesophageal reflux disease) Consult Acknowledgment - Thank you for your consult request.
[2017-11-10 06:55] VITALS: BP 112/61
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
[2017-11-10 10:12] LABS: ABSOLUTE BASOPHIL COUNT 0 /CUMM (0.0-0.2); ABSOLUTE EOSINOPHIL COUNT 0.1 /CUMM (0.0-0.7); ABSOLUTE LYMPH COUNT 1.5 /CUMM (1.2-3.4); ABSOLUTE MONOCYTE COUNT 0.8 /CUMM (0.10-0.60); BASOPHIL % 0.3 % (0.0-2.0); EOSINOPHIL % 0.9 % (0-5); GRANULOCYTE % 74.4 % (42.2-75.2); MEAN CORPUSCULAR HGB 29.5 PG (27.0-31.0); MEAN CORPUSCULAR HGB CONC 33.7 G/DL (33.0-37.0); MEAN CORPUSCULAR VOLUME 87.5 FL (81.0-99.0); MEAN PLATELET VOLUME 8.4 FL (7.4-10.4); PLATELET COUNT 353 /CUMM (130-400); RBC DISTRIBUTION WIDTH 13.4 % (11.5-14.5); RED BLOOD CELL CT 3.66 /CUMM (4.20-5.40); WHITE BLOOD CELL COUNT 9.4 /CUMM (4.8-10.8)
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
[2017-11-10 13:44] VITALS: BP 130/72
[2017-11-10 22:15] VITALS: BP 108/54
[2017-11-11 07:33] VITALS: BP 108/62
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
[2017-11-11 09:21] LABS: ABSOLUTE BASOPHIL COUNT 0 /CUMM (0.0-0.2); ABSOLUTE EOSINOPHIL COUNT 0.1 /CUMM (0.0-0.7); ABSOLUTE GRANULOCYTE CT 6.1 /CUMM (1.4-6.5); ABSOLUTE MONOCYTE COUNT 0.8 /CUMM (0.10-0.60); BASOPHIL % 0.5 % (0.0-2.0); EOSINOPHIL % 1.5 % (0-5); GRANULOCYTE % 67.2 % (42.2-75.2); MEAN CORPUSCULAR HGB 29.3 PG (27.0-31.0); MEAN CORPUSCULAR HGB CONC 33.2 G/DL (33.0-37.0); MEAN CORPUSCULAR VOLUME 88.4 FL (81.0-99.0); MEAN PLATELET VOLUME 8.6 FL (7.4-10.4); PLATELET COUNT 389 /CUMM (130-400); RBC DISTRIBUTION WIDTH 13.5 % (11.5-14.5); RED BLOOD CELL CT 3.85 /CUMM (4.20-5.40)
--- NOTE | 2017-11-11 14:28 | PN- Infect Dx ---
Subjective Subjective: Afebrile. She feels improved with minimal discomfort in the right buttock. Objective Last 24 Hrs of Vital Signs/I&O Vital Signs Date Time Temp Pulse Resp B/P B/P Pulse O2 O2 Flow FiO2 Mean Ox Delivery Rate 11/11 1047 62 116/64 11/11 0733 98.0 63 18 108/62 95 11/11 0000 CPAP 11/10 2215 98.0 78 18 108/54 95 Room Air Intake & Output 11/11 1600 11/11 0800 11/11 0000 Intake Total 200 Output Total 25 35 Balance 175 -35 Intake, IV 200 Output, 25 35 Drainage Physical Exam Other Physical Findings: She appears comfortable in no acute distress Back right buttock decreased induration and erythema, minimally tender to palpation; [address] with one yielding 30 mL output yesterday and 20 mL overnight and the second drain yielding 5 mL output yesterday and 5 mL overnight Results Last 24 Hours of Lab Results: Laboratory Tests 11/11 719 Chemistry Sodium (137 - 145 mmol/L) 140 Potassium (3.5 - 5.1 mmol/L) 3.8 Chloride (98 - 107 mmol/L) 98 Carbon Dioxide (22 - 30 mmol/L) 29 Anion Gap (5 - 16) 13 BUN (7 - 17 mg/dL) 7 Creatinine (0.5 - 1.0 mg/dL) 0.6 Estimated GFR (>60 ml/min) > 60 BUN/Creatinine Ratio (7 - 25 %) 11.7 Hematology CBC w Diff NO MAN DIFF REQ WBC (4.8 - 10.8 /CUMM) 9.0 RBC (4.20 - 5.40 /CUMM) 3.85 L Hgb (12.0 - 16.0 G/DL) 11.3 L Hct (37 - 47 %) 34.0 L MCV (81.0 - 99.0 FL) 88.4 MCH (27.0 - 31.0 PG) 29.3 RDW (11.5 - 14.5 %) 13.5 Plt Count (130 - 400 /CUMM) 389 MPV (7.4 - 10.4 FL) 8.6 Gran % (42.2 - 75.2 %) 67.2 Lymphocytes % (20.5 - 51.1 %) 22.2 Monocytes % (1.7 - 9.3 %) 8.6 Eosinophils % (0 - 5 %) 1.5 Basophils % (0.0 - 2.0 %) 0.5 Absolute Granulocytes (1.4 - 6.5 /CUMM) 6.1 Absolute Lymphocytes (1.2 - 3.4 /CUMM) 2.0 Absolute Monocytes (0.10 - 0.60 /CUMM) 0.8 H Absolute Eosinophils (0.0 - 0.7 /CUMM) 0.1 Absolute Basophils (0.0 - 0.2 /CUMM) 0 PUBS MCHC (33.0 - 37.0 G/DL) 33.2 Last 24 Hours of Gabe Results: Blood cultures November 09 negative Right gluteal cultures November 10 positive for gram-negative cocci, with gram stain revealing many white blood cells, rare gram-positive cocci and few gram- negative cocci Assessment/Plan Impression: Stable, with temperatures and white blood cell count normal, on Unasyn status post drainage of 2 right gluteal abscesses yesterday by IR, with the cultures revealing gram-negative cocci, with further identification pending. This would be an unusual organism in this setting (status post an IM injection with Bipovacaine and DepoMedrol) as would have expected Staph aureus or strep and will await the final ID. Have discussed with patient's pain management physician, Dr. Savage in [place], to inform him of this infection. He is not aware of any other patients who have had recent infections. Suggestion: 1. Follow-up final cultures 2. Will need a follow-up CT scan once the drainage has decreased to a minimum 3. Continue Unasyn pending above
[2017-11-11 14:33] VITALS: BP 100/74
--- NOTE | 2017-11-11 14:51 | ULTRASOUND REPORT ---
PROCEDURE: US GUIDED RIGHT GLUTEAL ABSCESS DRAINAGE X2 CLINICAL INFORMATION: 62-year-old female presenting with pain, erythema, and induration in the right buttock following gluteal injections approximately [address] of the pelvis showed the presence of 2 collections in the subcutaneous fat of the right buttock: one superomedially measuring 6.0 x 12.8 x 10.1 cm and the other inferolaterally measuring 7.0 x 9.6 x 9.1 cm. COMPARISON: CT of the pelvis dated 11/09/2017. PHARMACY ORDER ENTRY TECHNICIAN: Dar Santiago M.D. DESCRIPTION: The procedure was requested by Dr. Lane Lawson. Informed consent was obtained from the patient prior to the procedure. During this process, the procedure and potential alternatives was explained, along with the intended outcome and benefits. The risks of the procedure, as well as the risk of not doing the procedure, were discussed. The patient was given the opportunity to ask questions regarding the procedure and appeared competent to make medical decisions. A signed consent form which documents this discussion was placed in the medical record. The patient's prior imaging was reviewed. The patient was brought to the ultrasound suite and a final timeout procedure was performed. A sonographic survey was performed for localization of the target collections in the subcutaneous fat of the right gluteal region. The overlying soft tissues were sterilely prepped and draped. All elements of maximal sterile barrier technique followed including use of cap, mask, sterile gown, sterile gloves, a sterile full body drape, and hand hygiene. Also followed was skin preparation with 2% chlorhexidine for cutaneous antisepsis, and sterile ultrasound preparation with sterile gel and probe cover. Generous local anesthesia was administered using 1% lidocaine. 12 Yi locking pigtail catheters were placed sequentially in each collection beginning with the superomedial collection under sonographic guidance via a lateral approach. 20 mL of thick purulent material was aspirated from each collection and sent for culture with sensitivity. The catheter is were secured with 0-0 silk suture and a [employer]. The catheters were connected to gravity drainage. Sterile dressings were applied. The patient tolerated the procedure well. There is no evidence of complications. Orders were written for catheter flushing using 20 mL of normal saline flush for each catheter every shift. IMPRESSION: Ultrasound-guided drainage of 2 subcutaneous abscesses in the right gluteal region performed without evidence of complications.
[2017-11-11 22:36] VITALS: BP 126/70
[2017-11-12 04:53] VITALS: BP 100/50
[2017-11-12 08:30] LABS: ABSOLUTE BASOPHIL COUNT 0 /CUMM (0.0-0.2); ABSOLUTE EOSINOPHIL COUNT 0.1 /CUMM (0.0-0.7); ABSOLUTE GRANULOCYTE CT 4.3 /CUMM (1.4-6.5); ABSOLUTE LYMPH COUNT 2.1 /CUMM (1.2-3.4); ABSOLUTE MONOCYTE COUNT 0.5 /CUMM (0.10-0.60); BASOPHIL % 0.5 % (0.0-2.0); EOSINOPHIL % 1.8 % (0-5); GRANULOCYTE % 61.2 % (42.2-75.2); HEMATOCRIT 30.6 % (37-47); MEAN CORPUSCULAR HGB 29.3 PG (27.0-31.0); MEAN CORPUSCULAR HGB CONC 33.3 G/DL (33.0-37.0); MEAN CORPUSCULAR VOLUME 88.1 FL (81.0-99.0); MEAN PLATELET VOLUME 8.2 FL (7.4-10.4); PLATELET COUNT 349 /CUMM (130-400); RBC DISTRIBUTION WIDTH 13.3 % (11.5-14.5); RED BLOOD CELL CT 3.47 /CUMM (4.20-5.40)
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
--- NOTE | 2017-11-12 13:58 | PN- Infect Dx ---
Subjective Subjective: Afebrile. She feels well with no complaints. Objective Last 24 Hrs of Vital Signs/I&O Vital Signs Date Time Temp Pulse Resp B/P B/P Pulse O2 O2 Flow FiO2 Mean Ox Delivery Rate 11/12 1000 65 130/72 11/12 0453 97.7 59 20 100/50 96 BIPAP 11/11 2236 97.4 74 20 126/70 97 Room Air 11/11 1433 98.8 79 18 100/74 97 Intake & Output 11/12 1600 11/12 0800 11/12 0000 Intake Total 680 Output Total 50 35 Balance 630 -35 Intake, IV 200 Intake, Oral 480 Output, 50 35 Drainage Physical Exam Other Physical Findings: She appears comfortable in no acute distress Back right buttock mild erythema and tenderness medially, with decreased induration; [address], with 1 draining 55 mL yesterday and 50 mL overnight and with the other draining only 5 mL yesterday and none recorded overnight Results Last 24 Hours of Lab Results: Laboratory Tests 11/12 0740 Chemistry Sodium (137 - 145 mmol/L) 140 Potassium (3.5 - 5.1 mmol/L) 3.6 Chloride (98 - 107 mmol/L) 101 Carbon Dioxide (22 - 30 mmol/L) 30 Anion Gap (5 - 16) 10 BUN (7 - 17 mg/dL) 6 L Creatinine (0.5 - 1.0 mg/dL) 0.5 Estimated GFR (>60 ml/min) > 60 BUN/Creatinine Ratio (7 - 25 %) 12.0 Hematology CBC w Diff NO MAN DIFF REQ WBC (4.8 - 10.8 /CUMM) 7.0 RBC (4.20 - 5.40 /CUMM) 3.47 L Hgb (12.0 - 16.0 G/DL) 10.2 L Hct (37 - 47 %) 30.6 L MCV (81.0 - 99.0 FL) 88.1 MCH (27.0 - 31.0 PG) 29.3 RDW (11.5 - 14.5 %) 13.3 Plt Count (130 - 400 /CUMM) 349 MPV (7.4 - 10.4 FL) 8.2 Gran % (42.2 - 75.2 %) 61.2 Lymphocytes % (20.5 - 51.1 %) 29.5 Monocytes % (1.7 - 9.3 %) 7.0 Eosinophils % (0 - 5 %) 1.8 Basophils % (0.0 - 2.0 %) 0.5 Absolute Granulocytes (1.4 - 6.5 /CUMM) 4.3 Absolute Lymphocytes (1.2 - 3.4 /CUMM) 2.1 Absolute Monocytes (0.10 - 0.60 /CUMM) 0.5 Absolute Eosinophils (0.0 - 0.7 /CUMM) 0.1 Absolute Basophils (0.0 - 0.2 /CUMM) 0 PUBS MCHC (33.0 - 37.0 G/DL) 33.3 Last 24 Hours of Gabe Results: Blood cultures November 09 negative Right gluteal cultures November 10 now felt to be gram-negative rods, with ID and sensitivities pending Assessment/Plan Impression: Stable, with temperatures and white blood cell count normal, on Unasyn status post drainage of 2 right gluteal abscesses 2 days ago by IR, with the cultures now suggesting gram-negative rods, with final identification and sensitivities pending. She continues to have have a significant amount of drainage from one of the drains and, when this drainage decreases, a repeat CT scan will need to be done. Suggestion: 1. Follow-up final cultures 2. Will need a follow-up CT scan once the drainage has decreased to a minimum 3. Continue Unasyn pending above
[2017-11-12 14:51] VITALS: BP 142/84
[2017-11-12 22:50] VITALS: BP 134/80
[2017-11-13 06:33] VITALS: BP 132/82
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
[2017-11-13 09:29] LABS: ABSOLUTE BASOPHIL COUNT 0 /CUMM (0.0-0.2); ABSOLUTE EOSINOPHIL COUNT 0.2 /CUMM (0.0-0.7); ABSOLUTE GRANULOCYTE CT 4.4 /CUMM (1.4-6.5); ABSOLUTE LYMPH COUNT 2.3 /CUMM (1.2-3.4); ABSOLUTE MONOCYTE COUNT 0.6 /CUMM (0.10-0.60); BASOPHIL % 0.6 % (0.0-2.0); EOSINOPHIL % 2.2 % (0-5); GRANULOCYTE % 58.8 % (42.2-75.2); HEMATOCRIT 30.3 % (37-47); MEAN CORPUSCULAR HGB 29.2 PG (27.0-31.0); MEAN CORPUSCULAR HGB CONC 33.3 G/DL (33.0-37.0); MEAN CORPUSCULAR VOLUME 87.8 FL (81.0-99.0); MEAN PLATELET VOLUME 8.3 FL (7.4-10.4); PLATELET COUNT 373 /CUMM (130-400); RBC DISTRIBUTION WIDTH 13.4 % (11.5-14.5); RED BLOOD CELL CT 3.45 /CUMM (4.20-5.40); WHITE BLOOD CELL COUNT 7.5 /CUMM (4.8-10.8)
[2017-11-13 14:11] VITALS: BP 134/72
--- NOTE | 2017-11-13 14:25 | PN- Infect Dx ---
Subjective Subjective: Afebrile. She notes minimal discomfort in the right gluteal area. Objective Last 24 Hrs of Vital Signs/I&O Vital Signs Date Time Temp Pulse Resp B/P B/P Pulse O2 O2 Flow FiO2 Mean Ox Delivery Rate 11/13 1411 98.5 69 18 134/72 98 11/13 1351 70 134/72 11/13 0633 98.0 61 20 132/82 95 CPAP 11/12 2250 97.5 69 18 134/80 96 Room Air 11/12 1451 98.6 70 20 142/84 98 Room Air Intake & Output 11/13 1600 11/13 0800 11/13 0000 Intake Total Output Total 90 Balance -90 Output, 90 Drainage Physical Exam Other Physical Findings: She appears comfortable in no acute distress Back right gluteal erythema with mild tenderness lateral to the drains, with one drain still with a significant output (with 125 mL yesterday and 90 mL overnight ) and with the second drain yielding only 20 mL yesterday and none overnight Results Last 24 Hours of Lab Results: Laboratory Tests 11/13 0744 Hematology CBC w Diff NO MAN DIFF REQ WBC (4.8 - 10.8 /CUMM) 7.5 RBC (4.20 - 5.40 /CUMM) 3.45 L Hgb (12.0 - 16.0 G/DL) 10.1 L Hct (37 - 47 %) 30.3 L MCV (81.0 - 99.0 FL) 87.8 MCH (27.0 - 31.0 PG) 29.2 RDW (11.5 - 14.5 %) 13.4 Plt Count (130 - 400 /CUMM) 373 MPV (7.4 - 10.4 FL) 8.3 Gran % (42.2 - 75.2 %) 58.8 Lymphocytes % (20.5 - 51.1 %) 30.9 Monocytes % (1.7 - 9.3 %) 7.5 Eosinophils % (0 - 5 %) 2.2 Basophils % (0.0 - 2.0 %) 0.6 Absolute Granulocytes (1.4 - 6.5 /CUMM) 4.4 Absolute Lymphocytes (1.2 - 3.4 /CUMM) 2.3 Absolute Monocytes (0.10 - 0.60 /CUMM) 0.6 Absolute Eosinophils (0.0 - 0.7 /CUMM) 0.2 Absolute Basophils (0.0 - 0.2 /CUMM) 0 PUBS MCHC (33.0 - 37.0 G/DL) 33.3 Last 24 Hours of Gabe Results: Right gluteal cultures November 10 positive for possible Acinetobacter, with sensitivities pending Assessment/Plan Impression: Stable, with temperatures and white blood cell count remaining normal, on Unasyn status post drainage of 2 right gluteal abscesses 3 days ago by IR, with the cultures positive for possible Acinetobacter, with the sensitivities pending. She continues to have an area of erythema and tenderness lateral to the drains, raising concern for a residual infection/collection and repeat imaging may be helpful. Suggestion: 1. Follow-up final cultures 2. Will consider a repeat CT scan of the pelvis in the a.m. 3. Discontinue Unasyn 4. Begin Ciprofloxacin 750 mg po every 12 hours pending above
[2017-11-13 22:06] VITALS: BP 120/78
[2017-11-14 06:38] VITALS: BP 118/72
[2017-11-14 08:19] LABS: ABSOLUTE BASOPHIL COUNT 0 /CUMM (0.0-0.2); ABSOLUTE EOSINOPHIL COUNT 0.2 /CUMM (0.0-0.7); ABSOLUTE LYMPH COUNT 2.3 /CUMM (1.2-3.4); ABSOLUTE MONOCYTE COUNT 0.6 /CUMM (0.10-0.60); BASOPHIL % 0.5 % (0.0-2.0); EOSINOPHIL % 1.9 % (0-5); HEMATOCRIT 32.3 % (37-47); MEAN CORPUSCULAR HGB 29.2 PG (27.0-31.0); MEAN CORPUSCULAR HGB CONC 33.7 G/DL (33.0-37.0); MEAN CORPUSCULAR VOLUME 86.7 FL (81.0-99.0); PLATELET COUNT 460 /CUMM (130-400); RBC DISTRIBUTION WIDTH 13.7 % (11.5-14.5); RED BLOOD CELL CT 3.72 /CUMM (4.20-5.40); WHITE BLOOD CELL COUNT 8.1 /CUMM (4.8-10.8)
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
--- NOTE | 2017-11-14 13:46 | CT SCAN REPORT ---
EXAMINATION: CT PELVIS WITH IV CONTRAST CLINICAL INFORMATION: Draining fluid. COMPARISON: CT pelvis 11/09/2016. TECHNIQUE: Helical scanning was performed with submillimeter collimation through the pelvis with 100 mL of Optiray 320 intravenous contrast. Sagittal and coronal multiplanar 2-D reconstructions were obtained. DLP: 906 mGy-cm FINDINGS: 10 x 3 x 3 cm fluid collection in the right gluteal subcutaneous tissues is decreased from 13 x 6 x 13 cm. There is a pigtail catheter in place. There is another pigtail catheter within the inferior aspect of the same fluid collection with no residual fluid around it. The more inferior fluid collection on the prior CT scan is not able to be accurately measured due to the patient's body lying up against the CT gantry but it may be slightly smaller in size if it communicates with the more superior catheters. There is no intrapelvic abscess or lymphadenopathy. Degenerative changes in the spine. IMPRESSION: On the prior CT scan there were two measurable collections in the subcutaneous right gluteal tissues. The superior collection is significantly improved in size. The inferior collection is not well imaged due to body habitus and may be slightly smaller in size.
--- NOTE | 2017-11-14 15:03 | PN- Infect Dx ---
Subjective Subjective: Afebrile. She still notes some discomfort in the lateral aspect of her right buttock Objective Last 24 Hrs of Vital Signs/I&O Vital Signs Date Time Temp Pulse Resp B/P B/P Pulse O2 O2 Flow FiO2 Mean Ox Delivery Rate 11/14 0937 72 128/64 11/14 0638 97.7 53 20 118/72 96 CPAP 11/13 2206 98.5 68 20 120/78 96 BIPAP Intake & Output 11/14 1600 11/14 0800 11/14 0000 Intake Total Output Total 40 Balance -40 Output, 40 Drainage Patient 289 lb Weight Physical Exam Other Physical Findings: She appears comfortable in no acute distress Back right buttock erythema laterally, mildly tender to palpation; drains remain in place, with the inferior drain yielding 90 mL yesterday and 40 mL overnight and the superior drain with no output yesterday or overnight Results Last 24 Hours of Lab Results: Laboratory Tests 11/14 737 Chemistry Sodium (137 - 145 mmol/L) 144 Potassium (3.5 - 5.1 mmol/L) 3.9 Chloride (98 - 107 mmol/L) 99 Carbon Dioxide (22 - 30 mmol/L) 31 H Anion Gap (5 - 16) 14 BUN (7 - 17 mg/dL) 7 Creatinine (0.5 - 1.0 mg/dL) 0.6 Estimated GFR (>60 ml/min) > 60 BUN/Creatinine Ratio (7 - 25 %) 11.7 Hematology CBC w Diff NO MAN DIFF REQ WBC (4.8 - 10.8 /CUMM) 8.1 RBC (4.20 - 5.40 /CUMM) 3.72 L Hgb (12.0 - 16.0 G/DL) 10.9 L Hct (37 - 47 %) 32.3 L MCV (81.0 - 99.0 FL) 86.7 MCH (27.0 - 31.0 PG) 29.2 RDW (11.5 - 14.5 %) 13.7 Plt Count (130 - 400 /CUMM) 460 H MPV (7.4 - 10.4 FL) 8.0 Gran % (42.2 - 75.2 %) 62.0 Lymphocytes % (20.5 - 51.1 %) 28.6 Monocytes % (1.7 - 9.3 %) 7.0 Eosinophils % (0 - 5 %) 1.9 Basophils % (0.0 - 2.0 %) 0.5 Absolute Granulocytes (1.4 - 6.5 /CUMM) 5.0 Absolute Lymphocytes (1.2 - 3.4 /CUMM) 2.3 Absolute Monocytes (0.10 - 0.60 /CUMM) 0.6 Absolute Eosinophils (0.0 - 0.7 /CUMM) 0.2 Absolute Basophils (0.0 - 0.2 /CUMM) 0 PUBS MCHC (33.0 - 37.0 G/DL) 33.7 Last 24 Hours of Gabe Results: Right gluteal cultures November 10 identified as Acinetobacter lwoffii sensitive to Unasyn, Ceftazidime, Ciprofloxacin and Gentamicin Recent Imaging Studies: CT of the pelvis from today reveals a 10 x 3 x 3 cm fluid collection in the right gluteal subcutaneous tissues, decreased slightly from the previous study, with a pigtail catheter in place; the other pigtail catheter within the inferior aspect of the same fluid collection has no residual fluid around it; the more inferior fluid collection on the prior CT cannot be measured due to her body habitus Assessment/Plan Impression: Persistent erythema on the lateral aspect of her right gluteus likely corresponds to an undrained fluid collection, noted on the CT scan, with the 2 drains that are currently in place apparently draining the same fluid collection , which has decreased in size on the recent CT scan. She does remain afebrile with a normal white blood cell count, now on Ciprofloxacin, which will cover the Acinetobacter, which has been identified from the cultures. Suggestion: 1. Would pursue ultrasound-guided drainage of the inferior lateral collection ( discussed with IR) 2. Continue Ciprofloxacin
[2017-11-14 15:10] VITALS: BP 124/80
--- NOTE | 2017-11-14 16:52 | ULTRASOUND REPORT ---
PROCEDURE: US GUIDED RIGHT GLUTEAL ABSCESS DRAINAGE CLINICAL INFORMATION: 62-year-old female presenting with pain, erythema, and induration in the right buttock following gluteal injections approximately 2 weeks ago. Previous then underwent ultrasound-guided drainage. Recent CT shows persistent right lateral fluid collection. The patient also reports that 1 of the 2 drains is no longer draining any fluid. COMPARISON: CT of the pelvis dated 11/14/2017. WHITE KID BUFFER: Raul Mercado M.D. DESCRIPTION: The procedure was requested by Dr. Lane Lawson. Informed consent was obtained from the patient prior to the procedure. During this process, the procedure and potential alternatives was explained, along with the intended outcome and benefits. The risks of the procedure, as well as the risk of not doing the procedure, were discussed. The patient was given the opportunity to ask questions regarding the procedure and appeared competent to make medical decisions. A signed consent form which documents this discussion was placed in the medical record. The patient's prior imaging was reviewed. The patient was brought to the ultrasound suite and a final timeout procedure was performed. A sonographic survey was performed for localization of the target collections in the subcutaneous fat of the right gluteal region. The overlying soft tissues were sterilely prepped and draped. All elements of maximal sterile barrier technique followed including use of cap, mask, sterile gown, sterile gloves, a sterile full body drape, and hand hygiene. Also followed was skin preparation with 2% chlorhexidine for cutaneous antisepsis, and sterile ultrasound preparation with sterile gel and probe cover. Generous local anesthesia was administered using 1% lidocaine. Using real-time ultrasound guidance, a 5 Romanian Yueh needle was advanced into the lateral area of amorphic heterogeneous tissue, presumed abscess/phlegmon. Fluid did not immediately drained out of the Yueh needle. The Yueh needle was replaced 2 times in the slightly different areas of the amorphic tissue. Still no fluid drained out. The wire was threaded end felt smooth. The needle was removed and the skin was dilated with 10 and 12 Romanian fascial dilators over a wire. A 14 Romanian locking pigtail catheter was placed into the amorphic tissue. 50 mL of cloudy brown purulent material was aspirated and sent for culture and sensitivity. The catheter was secured with 0 Prolene and a StatLock. The catheters was connected to gravity drainage. Sterile Tegaderm was applied. Next, the catheter that was not draining fluid was removed and a sterile dressing applied. The patient tolerated the procedure well. There is no evidence of complications. Orders were written for catheter flushing using 10 mL of normal saline flush for each catheter every shift. IMPRESSION: Ultrasound-guided drainage of the lateral subcutaneous abscess in the right gluteal region performed without evidence of complications. The pre-existing nondraining catheter was removed. The pre-existing draining catheter was left in place. The patient may need surgical incision and drainage if catheter-based therapy proves unsuccessful. Also, if the patient needs to be rescanned with CT, suggest performing the CT in the left lateral decubitus position to try to keep the area in question away from the CT gantry and improve the imaging. Findings and recommendations discussed with Dr. Margarita ferris at 4:30 PM on 11/14/2017.
[2017-11-14 21:54] VITALS: BP 130/82
[2017-11-15 06:56] VITALS: BP 124/68
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
[2017-11-15 09:12] LABS: ABSOLUTE BASOPHIL COUNT 0 /CUMM (0.0-0.2); ABSOLUTE EOSINOPHIL COUNT 0.1 /CUMM (0.0-0.7); ABSOLUTE GRANULOCYTE CT 3.4 /CUMM (1.4-6.5); ABSOLUTE LYMPH COUNT 2.3 /CUMM (1.2-3.4); ABSOLUTE MONOCYTE COUNT 0.5 /CUMM (0.10-0.60); BASOPHIL % 0.6 % (0.0-2.0); EOSINOPHIL % 1.8 % (0-5); GRANULOCYTE % 54.2 % (42.2-75.2); MEAN CORPUSCULAR HGB 28.9 PG (27.0-31.0); MEAN CORPUSCULAR HGB CONC 33.4 G/DL (33.0-37.0); MEAN CORPUSCULAR VOLUME 86.4 FL (81.0-99.0); MEAN PLATELET VOLUME 8.2 FL (7.4-10.4); PLATELET COUNT 441 /CUMM (130-400); RBC DISTRIBUTION WIDTH 13.8 % (11.5-14.5); RED BLOOD CELL CT 3.48 /CUMM (4.20-5.40); WHITE BLOOD CELL COUNT 6.3 /CUMM (4.8-10.8)
--- NOTE | 2017-11-15 12:49 | PN- General Surgery ---
Subjective Subjective: followup of buttock abscess 2 perc drains placed on , 5 days ago, grew acinitobacter, one of those drains repalced under sono yesterday. Pt more worried but feels fine, much less pain overall, no sweats, tolerating diet ambulating. Objective Vital Signs and I&Os I reviewed Vital Signs Date Time Temp Pulse Resp B/P B/P Pulse O2 O2 Flow FiO2 Mean Ox Delivery Rate 11/15 1051 68 124/62 11/15 0656 97.9 63 20 124/68 95 BIPAP 11/15 0000 62 11/14 2154 98.4 52 20 130/82 98 Room Air 11/14 1510 98.5 73 20 124/80 97 Room Air I reviewed Intake & Output 11/15 1600 11/15 0800 11/15 0000 11/14 1600 11/14 0800 11/14 0000 Intake Total 200 480 840 Output Total 10 220 40 Balance 190 260 840 -40 Intake, Oral 200 480 840 Number 0 Bowel Movements Output, 10 220 40 Drainage Patient 289 lb Weight Physical Exam: Constitutional: no acute distress no pain Eyes: sclera anicteric ENMT: moist mucous membranes Cardiovascular: S1-S2 no murmurs no peripheral edema Respiratory: clear to auscultation with normal respiratory effort and no intercostal retractions GI: abdomen soft nontender nondistended Extremities / lymphatics: free range of motion no peripheral edema right buttock with drains, less edema, less erythema Skin: no jaundice no rashes warm, nondiaphoretic Psychiatric: mood and affect are appropriate and alert and oriented to person place and time Current Medications: I reviewed Current Medications Sig/J Luis Start time Last Medication Dose Route Stop Time Status Admin Acetaminophen 650 MG Q6P PRN 11/09 1645 AC PO Alprazolam 0.5 MG DAILY NEEDED PRN 11/09 1830 AC PO 11/16 1829 Aspirin Buffered 81 MG DAILY 11/14 1000 AC 11/14 PO 0946 Atorvastatin Calcium 20 MG 1700 11/10 1700 AC 11/14 PO 1736 Budesonide/ 2 PUF BID 11/09 2199 AC 11/15 Formoterol Fumarate INH 1104 Calcium Carbonate 1,250 MG DAILY 11/10 1000 AC 11/14 PO 0936 Ciprofloxacin 750 MG BID 11/13 2199 AC 11/15 PO 01/14 2159 1052 Cyclobenzaprine HCl 5 MG TID PRN 11/09 1830 AC 11/14 PO 2349 Docusate Sodium 200 MG BID 11/09 2200 AC 11/15 PO 1052 Ergocalciferol 50,000 IU QSUN 11/10 0700 AC 11/10 PO 0536 Fluoxetine HCl 20 MG QAM 11/10 1000 AC 11/15 PO 1051 Hydrochlorothiazide 25 MG QAM 11/10 1000 AC 11/15 PO 1051 Lidocaine 1 ML .STK-MED ONE 11/14 1636 DC ID 11/14 1637 Lidocaine/Prilocaine 1 NANCY BID PRN 11/09 220 AC TOP Lisinopril 10 MG QAM 11/10 1000 AC 11/15 PO 1051 Loratadine 10 MG DAILY 11/10 1000 AC 11/15 PO 1052 Montelukast Sodium 10 MG QPM 11/09 2200 AC 11/14 PO 2143 Morphine Sulfate 2 MG Q4P PRN 11/09 1645 AC 11/15 IV 1051 Multivitamins 1 TAB QAM 11/10 1000 AC 11/15 Therapeutic PO 1051 Naproxen 500 MG BID 11/09 2200 AC 11/14 PO 2144 Omeprazole 40 MG DAILY AC 11/10 0700 AC 11/15 PO 0650 Oxycodone HCl 20 MG BID 11/09 2200 AC 11/15 PO 1052 Oxycodone/ 1 TAB Q4P PRN 11/09 1830 AC 11/14 Acetaminophen PO 1900 Polyethylene Glycol 17 GM DAILY 11/12 0830 AC 11/13 PO 1104 Pregabalin 75 MG TID 11/09 1826 AC 11/15 PO 1103 Senna 374 MG BID 11/09 220 AC 11/15 PO 1051 Results Last 48 Hours of Labs: I reviewed Laboratory Tests 11/15 11/14 0739 0738 Chemistry Sodium (137 - 145 mmol/L) 144 Potassium (3.5 - 5.1 mmol/L) 3.9 Chloride (98 - 107 mmol/L) 99 Carbon Dioxide (22 - 30 mmol/L) 31 H Anion Gap (5 - 16) 14 BUN (7 - 17 mg/dL) 7 Creatinine (0.5 - 1.0 mg/dL) 0.6 Estimated GFR (>60 ml/min) > 60 BUN/Creatinine Ratio (7 - 25 %) 11.7 Hematology CBC w Diff NO MAN DIFF REQ NO MAN DIFF REQ WBC (4.8 - 10.8 /CUMM) 6.3 8.1 RBC (4.20 - 5.40 /CUMM) 3.48 L 3.72 L Hgb (12.0 - 16.0 G/DL) 10.0 L 10.9 L Hct (37 - 47 %) 30.0 L 32.3 L MCV (81.0 - 99.0 FL) 86.4 86.7 MCH (27.0 - 31.0 PG) 28.9 29.2 RDW (11.5 - 14.5 %) 13.8 13.7 Plt Count (130 - 400 /CUMM) 441 H 460 H MPV (7.4 - 10.4 FL) 8.2 8.0 Gran % (42.2 - 75.2 %) 54.2 62.0 Lymphocytes % (20.5 - 51.1 %) 35.7 28.6 Monocytes % (1.7 - 9.3 %) 7.7 7.0 Eosinophils % (0 - 5 %) 1.8 1.9 Basophils % (0.0 - 2.0 %) 0.6 0.5 Absolute Granulocytes (1.4 - 6.5 /CUMM) 3.4 5.0 Absolute Lymphocytes (1.2 - 3.4 /CUMM) 2.3 2.3 Absolute Monocytes (0.10 - 0.60 /CUMM) 0.5 0.6 Absolute Eosinophils (0.0 - 0.7 /CUMM) 0.1 0.2 Absolute Basophils (0.0 - 0.2 /CUMM) 0 0 PUBS MCHC (33.0 - 37.0 G/DL) 33.4 33.7 Assessment/Plan Assessment/Plan Studies: I reviewed the CT scan from yesterday on PACS myself, it shows the 2 drains in good position with significant decrease in the collections. Impression buttock abscess improved, there is new second drain placed after 4 days only, she remains afebrile with a gradually decreasing a normal white blood cell count, no signs of worsening infection I checked that the drains are patent and being flushed regularly, I would continue treatment with these drains follow -up new culture, overall however you need to wait with these drains at least a week or 2. As long as the patient doesn't worsen. An open wound in this area is much more risky. She can follow up in our office with these drains. Problem List: 1. Cellulitis and abscess of buttock
--- NOTE | 2017-11-15 13:20 | PN- Infect Dx ---
Subjective Subjective: Afebrile. She complains of discomfort at the site of the recently placed catheter Objective Last 24 Hrs of Vital Signs/I&O Vital Signs Date Time Temp Pulse Resp B/P B/P Pulse O2 O2 Flow FiO2 Mean Ox Delivery Rate 11/15 1051 68 124/62 11/15 0656 97.9 63 20 124/68 95 BIPAP 11/15 0000 62 11/14 2154 98.4 52 20 130/82 98 Room Air 11/14 1510 98.5 73 20 124/80 97 Room Air Intake & Output 11/15 1600 11/15 0800 11/15 0000 Intake Total 200 480 Output Total 10 220 Balance 190 260 Intake, Oral 200 480 Number 0 Bowel Movements Output, 10 220 Drainage Physical Exam Other Physical Findings: She appears comfortable in no acute distress Back slightly decreased erythema with mild tenderness on the lateral aspect of the right buttock around the recently placed catheter, with no output from this catheter overnight; one of the initial catheters remains in place with 80 mL output yesterday and 10 mL overnight Results Last 24 Hours of Lab Results: Laboratory Tests 11/15 0739 Hematology CBC w Diff NO MAN DIFF REQ WBC (4.8 - 10.8 /CUMM) 6.3 RBC (4.20 - 5.40 /CUMM) 3.48 L Hgb (12.0 - 16.0 G/DL) 10.0 L Hct (37 - 47 %) 30.0 L MCV (81.0 - 99.0 FL) 86.4 MCH (27.0 - 31.0 PG) 28.9 RDW (11.5 - 14.5 %) 13.8 Plt Count (130 - 400 /CUMM) 441 H MPV (7.4 - 10.4 FL) 8.2 Gran % (42.2 - 75.2 %) 54.2 Lymphocytes % (20.5 - 51.1 %) 35.7 Monocytes % (1.7 - 9.3 %) 7.7 Eosinophils % (0 - 5 %) 1.8 Basophils % (0.0 - 2.0 %) 0.6 Absolute Granulocytes (1.4 - 6.5 /CUMM) 3.4 Absolute Lymphocytes (1.2 - 3.4 /CUMM) 2.3 Absolute Monocytes (0.10 - 0.60 /CUMM) 0.5 Absolute Eosinophils (0.0 - 0.7 /CUMM) 0.1 Absolute Basophils (0.0 - 0.2 /CUMM) 0 PUBS MCHC (33.0 - 37.0 G/DL) 33.4 Last 24 Hours of Gabe Results: Right gluteal culture November 14 negative Assessment/Plan Impression: Stable, with temperatures and white blood cell count remaining normal on Ciprofloxacin for Acinetobacter, which was cultured from the initial aspiration of her right buttock abscess (secondary to an IM injection of Bipovacaine Depo- Medrol 2 weeks prior to admission) with some decrease in the erythema and induration on the lateral aspect of her right buttock status post drainage yesterday of 50 mL of cloudy brown purulent fluid from the inferior collection seen on the recent CT scan, with the preliminary culture of this fluid negative. She continues to drain a moderate amount of fluid from one of the catheters that was initially placed 5 days ago, though this appears to have decreased overnight, with removal of the second catheter that was not draining. It is possible that adequate drainage will not be accomplished by IR and she should be reevaluated by Surgery. Suggestion: 1. Repeat CT of the pelvis in the left lateral decubitus position (with her right hip up) once drainage from her catheters has decreased to a minimum 2. Surgical reevaluation 3. Continue Ciprofloxacin
[2017-11-15 14:57] VITALS: BP 118/70
[2017-11-15 22:27] VITALS: BP 120/74
[2017-11-16 06:19] VITALS: BP 118/68
[2017-11-16 09:04] LABS: ABSOLUTE BASOPHIL COUNT 0 /CUMM (0.0-0.2); ABSOLUTE EOSINOPHIL COUNT 0.1 /CUMM (0.0-0.7); ABSOLUTE GRANULOCYTE CT 3.9 /CUMM (1.4-6.5); ABSOLUTE LYMPH COUNT 2.3 /CUMM (1.2-3.4); ABSOLUTE MONOCYTE COUNT 0.5 /CUMM (0.10-0.60); BASOPHIL % 0.7 % (0.0-2.0); EOSINOPHIL % 1.7 % (0-5); GRANULOCYTE % 56.6 % (42.2-75.2); HEMATOCRIT 29.8 % (37-47); MEAN CORPUSCULAR VOLUME 87.8 FL (81.0-99.0); MEAN PLATELET VOLUME 8.3 FL (7.4-10.4); PLATELET COUNT 441 /CUMM (130-400); RED BLOOD CELL CT 3.39 /CUMM (4.20-5.40); WHITE BLOOD CELL COUNT 6.9 /CUMM (4.8-10.8)
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
--- NOTE | 2017-11-16 12:00 | PN- Infect Dx ---
Subjective Subjective: Afebrile. She feels somewhat improved but still reports pain at the site of the recently placed catheter Objective Last 24 Hrs of Vital Signs/I&O Vital Signs Date Time Temp Pulse Resp B/P B/P Pulse O2 O2 Flow FiO2 Mean Ox Delivery Rate 11/16 1010 64 142/82 11/16 0651 57 11/16 0619 97.4 20 118/68 95 11/15 2227 98.4 76 18 120/74 98 Room Air 11/15 1457 98.1 75 20 118/70 100 Room Air Intake & Output 11/16 1600 11/16 0800 11/16 0000 Intake Total 120 Output Total 95 Balance 120 -95 Intake, Oral 120 Output, 95 Drainage Physical Exam Other Physical Findings: She appears comfortable in no acute distress Back decreased erythema and tenderness over the lateral aspect of her right buttock, with the initial drain in place, with 90 mL output yesterday, and with the most recently placed drain with 15 mL output yesterday Results Last 24 Hours of Lab Results: Laboratory Tests 11/16 0728 Chemistry Sodium (137 - 145 mmol/L) 139 Potassium (3.5 - 5.1 mmol/L) 3.7 Chloride (98 - 107 mmol/L) 100 Carbon Dioxide (22 - 30 mmol/L) 28 Anion Gap (5 - 16) 11 BUN (7 - 17 mg/dL) 9 Creatinine (0.5 - 1.0 mg/dL) 0.6 Estimated GFR (>60 ml/min) > 60 BUN/Creatinine Ratio (7 - 25 %) 15.0 Hematology CBC w Diff NO MAN DIFF REQ WBC (4.8 - 10.8 /CUMM) 6.9 RBC (4.20 - 5.40 /CUMM) 3.39 L Hgb (12.0 - 16.0 G/DL) 9.9 L Hct (37 - 47 %) 29.8 L MCV (81.0 - 99.0 FL) 87.8 MCH (27.0 - 31.0 PG) 29.0 RDW (11.5 - 14.5 %) 14.0 Plt Count (130 - 400 /CUMM) 441 H MPV (7.4 - 10.4 FL) 8.3 Gran % (42.2 - 75.2 %) 56.6 Lymphocytes % (20.5 - 51.1 %) 33.8 Monocytes % (1.7 - 9.3 %) 7.2 Eosinophils % (0 - 5 %) 1.7 Basophils % (0.0 - 2.0 %) 0.7 Absolute Granulocytes (1.4 - 6.5 /CUMM) 3.9 Absolute Lymphocytes (1.2 - 3.4 /CUMM) 2.3 Absolute Monocytes (0.10 - 0.60 /CUMM) 0.5 Absolute Eosinophils (0.0 - 0.7 /CUMM) 0.1 Absolute Basophils (0.0 - 0.2 /CUMM) 0 PUBS MCHC (33.0 - 37.0 G/DL) 33.0 Last 24 Hours of Gabe Results: Right gluteal culture from November 14 negative Assessment/Plan Impression: Stable, with temperatures and white blood cell count remaining normal, on Ciprofloxacin for Acinetobacter, which was cultured from the initial aspiration of her right buttock abscess (secondary to an IM injection of Bipovacaine Depo- Medrol 2 weeks prior to admission) with a decrease in the erythema and induration on the lateral aspect of her right buttock since placement of the new catheter 2 days ago, with minimal drainage from this catheter but with continued drainage from the initial catheter that was placed 6 days ago. Surgical reevaluation noted and appreciated. Suggestion: 1. Repeat CT of the pelvis in the left lateral decubitus position (with her right hip up) once drainage from her initial catheter has decreased to a minimum 2. Continue Ciprofloxacin Dana Atkins MD will be covering until November 19
[2017-11-16 15:00] VITALS: BP 132/80
[2017-11-16 23:54] VITALS: BP 126/77
[2017-11-17 08:08] VITALS: BP 132/73
[2017-11-17 08:32] LABS: ABSOLUTE BASOPHIL COUNT 0.1 /CUMM (0.0-0.2); ABSOLUTE EOSINOPHIL COUNT 0.1 /CUMM (0.0-0.7); ABSOLUTE GRANULOCYTE CT 3.4 /CUMM (1.4-6.5); ABSOLUTE LYMPH COUNT 2.6 /CUMM (1.2-3.4); ABSOLUTE MONOCYTE COUNT 0.5 /CUMM (0.10-0.60); BASOPHIL % 0.9 % (0.0-2.0); EOSINOPHIL % 1.7 % (0-5); GRANULOCYTE % 51.2 % (42.2-75.2); HEMATOCRIT 34.2 % (37-47); MEAN CORPUSCULAR HGB CONC 33.1 G/DL (33.0-37.0); MEAN CORPUSCULAR VOLUME 87.7 FL (81.0-99.0); MEAN PLATELET VOLUME 8.4 FL (7.4-10.4); PLATELET COUNT 510 /CUMM (130-400); RBC DISTRIBUTION WIDTH 13.6 % (11.5-14.5); WHITE BLOOD CELL COUNT 6.7 /CUMM (4.8-10.8)
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
[2017-11-17 15:15] VITALS: BP 116/70
[2017-11-17 22:38] VITALS: BP 140/70
[2017-11-18 05:55] VITALS: BP 136/78
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
[2017-11-18 08:40] LABS: ABSOLUTE BASOPHIL COUNT 0 /CUMM (0.0-0.2); ABSOLUTE EOSINOPHIL COUNT 0.2 /CUMM (0.0-0.7); ABSOLUTE GRANULOCYTE CT 4.3 /CUMM (1.4-6.5); ABSOLUTE LYMPH COUNT 2.3 /CUMM (1.2-3.4); ABSOLUTE MONOCYTE COUNT 0.6 /CUMM (0.10-0.60); BASOPHIL % 0.6 % (0.0-2.0); EOSINOPHIL % 2.1 % (0-5); GRANULOCYTE % 57.7 % (42.2-75.2); HEMATOCRIT 30.8 % (37-47); MEAN CORPUSCULAR HGB 28.9 PG (27.0-31.0); MEAN CORPUSCULAR VOLUME 87.6 FL (81.0-99.0); MEAN PLATELET VOLUME 8.4 FL (7.4-10.4); PLATELET COUNT 475 /CUMM (130-400); RBC DISTRIBUTION WIDTH 13.9 % (11.5-14.5); RED BLOOD CELL CT 3.51 /CUMM (4.20-5.40); WHITE BLOOD CELL COUNT 7.4 /CUMM (4.8-10.8)
--- NOTE | 2017-11-18 12:38 | CT SCAN REPORT ---
EXAMINATION: CT PELVIS WITHOUT CONTRAST CLINICAL INFORMATION: Right gluteal abscess x2. COMPARISON: CT scan of the pelvis dated 11/14/2017 and 11/09/2017. Ultrasound-guided gluteal abscess drainage 11/14/2017. TECHNIQUE: Helical scanning was performed with submillimeter collimation through the pelvis with the patient in the left lateral decubitus position. Sagittal and coronal multiplanar 2-D reconstructions were obtained. DLP: 1241.30 mGy-cm FINDINGS: PELVIS: Moderate sigmoid colonic diverticulosis is seen with no evidence of acute diverticulitis. Included bowel loops are otherwise unremarkable. Included portions of liver, kidneys unremarkable. Uterus and ovaries atrophic and unremarkable. No pelvic free fluid or adenopathy. Bladder partially distended and unremarkable. No suspicious bone findings. PELVIC WALL: A pigtail catheter is seen extending into the more anterior and superior right gluteal phlegmonous collection, which has nearly completely drained with only residual bandlike areas of densities remaining. No definite liquid drainable component remains. The second pigtail catheter in extending into the more posterior and inferior right gluteal collection as being the loculation in which it extends. There does, however, remain a undrained loculated collection measuring approximately 6.7 x 5.1 cm more medial and superior to this drainage catheter. IMPRESSION: 1. The more superior and anterior of the previously demonstrated 2 right-sided gluteal collections is completely drained by the pigtail catheter. 2. The more inferior and medial right gluteal collection has only incompletely drained with a loculation still remaining as discussed above. The drainage catheter tip does not extend into this remaining loculation.
[2017-11-18 14:16] VITALS: BP 134/88
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
[2017-11-18 22:30] VITALS: BP 128/68
[2017-11-19 07:12] VITALS: BP 120/64
[2017-11-19 08:34] LABS: ABSOLUTE BASOPHIL COUNT 0 /CUMM (0.0-0.2); ABSOLUTE EOSINOPHIL COUNT 0.2 /CUMM (0.0-0.7); ABSOLUTE GRANULOCYTE CT 4.2 /CUMM (1.4-6.5); ABSOLUTE LYMPH COUNT 2.4 /CUMM (1.2-3.4); ABSOLUTE MONOCYTE COUNT 0.6 /CUMM (0.10-0.60); BASOPHIL % 0.5 % (0.0-2.0); EOSINOPHIL % 2.9 % (0-5); GRANULOCYTE % 56.3 % (42.2-75.2); HEMATOCRIT 33.7 % (37-47); MEAN CORPUSCULAR HGB 29.1 PG (27.0-31.0); MEAN CORPUSCULAR HGB CONC 32.9 G/DL (33.0-37.0); MEAN CORPUSCULAR VOLUME 88.5 FL (81.0-99.0); MEAN PLATELET VOLUME 8.3 FL (7.4-10.4); PLATELET COUNT 516 /CUMM (130-400); RBC DISTRIBUTION WIDTH 14.1 % (11.5-14.5); RED BLOOD CELL CT 3.81 /CUMM (4.20-5.40); WHITE BLOOD CELL COUNT 7.5 /CUMM (4.8-10.8)
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
--- NOTE | 2017-11-19 14:51 | PN- Infect Dx ---
Subjective Subjective: Afebrile. She notes minimal discomfort in the right buttock. Objective Last 24 Hrs of Vital Signs/I&O Vital Signs Date Time Temp Pulse Resp B/P B/P Pulse O2 O2 Flow FiO2 Mean Ox Delivery Rate 11/19 0817 66 120/64 11/19 0712 97.7 66 20 120/64 95 11/18 2230 98.0 73 20 128/68 96 Room Air Intake & Output 11/19 1600 11/19 0800 11/19 0000 Intake Total 373 670 8197 Output Total 30 80 Balance 821 255 7828 Intake, IV 0 Intake, Oral 815 864 9758 Output, 30 80 Drainage Physical Exam Other Physical Findings: She appears comfortable in no acute distress Back right buttock with no further erythema or induration; [address], with the original drain yielding 55 mL output yesterday and 50 mL overnight and the more recently inserted drain with 25 mL output yesterday and 30 mL overnight Results Last 24 Hours of Lab Results: Laboratory Tests 11/19 715 Hematology CBC w Diff NO MAN DIFF REQ WBC (4.8 - 10.8 /CUMM) 7.5 RBC (4.20 - 5.40 /CUMM) 3.81 L Hgb (12.0 - 16.0 G/DL) 11.1 L Hct (37 - 47 %) 33.7 L MCV (81.0 - 99.0 FL) 88.5 MCH (27.0 - 31.0 PG) 29.1 RDW (11.5 - 14.5 %) 14.1 Plt Count (130 - 400 /CUMM) 516 H MPV (7.4 - 10.4 FL) 8.3 Gran % (42.2 - 75.2 %) 56.3 Lymphocytes % (20.5 - 51.1 %) 32.6 Monocytes % (1.7 - 9.3 %) 7.7 Eosinophils % (0 - 5 %) 2.9 Basophils % (0.0 - 2.0 %) 0.5 Absolute Granulocytes (1.4 - 6.5 /CUMM) 4.2 Absolute Lymphocytes (1.2 - 3.4 /CUMM) 2.4 Absolute Monocytes (0.10 - 0.60 /CUMM) 0.6 Absolute Eosinophils (0.0 - 0.7 /CUMM) 0.2 Absolute Basophils (0.0 - 0.2 /CUMM) 0 PUBS MCHC (33.0 - 37.0 G/DL) 32.9 L Last 24 Hours of Gabe Results: No new cultures Recent Imaging Studies: CT of the pelvis November 18 reveals complete drainage of the more superior and anterior of the previously demonstrated collections with incomplete drainage of the more inferior and medial right gluteal collection, with a loculation, measuring 6.7 x 5.1 cm, more medial and superior to this drainage catheter Assessment/Plan Impression: Stable, with temperatures and white blood cell count remaining normal, on Ciprofloxacin for Acinetobacter, which was cultured from the initial aspiration of her right buttock abscess, with resolution of the erythema and induration on the lateral aspect of her right buttock since placement of the new catheter 5 days ago, with minimal drainage from this catheter but with continued drainage from the initial catheter that was placed 9 days ago. Have reviewed the recent CT with IR, who feels that the loculated collection seen is being drained by the current catheter and, therefore, does not feel that further intervention is indicated at this time. Surgical reevaluation noted, with no plans for intervention. Suggestion: 1. Will re-review CT findings with IR in the a.m. 2. Continue Ciprofloxacin
[2017-11-19 15:18] VITALS: BP 122/80
[2017-11-19 21:52] VITALS: BP 114/76
[2017-11-20 06:48] VITALS: BP 118/68
[2017-11-20 08:15] LABS: ABSOLUTE BASOPHIL COUNT 0 /CUMM (0.0-0.2); ABSOLUTE EOSINOPHIL COUNT 0.2 /CUMM (0.0-0.7); ABSOLUTE GRANULOCYTE CT 3.6 /CUMM (1.4-6.5); ABSOLUTE LYMPH COUNT 2.4 /CUMM (1.2-3.4); ABSOLUTE MONOCYTE COUNT 0.5 /CUMM (0.10-0.60); BASOPHIL % 0.6 % (0.0-2.0); EOSINOPHIL % 2.6 % (0-5); GRANULOCYTE % 53.7 % (42.2-75.2); HEMATOCRIT 31.4 % (37-47); MEAN CORPUSCULAR HGB 29.2 PG (27.0-31.0); MEAN CORPUSCULAR HGB CONC 33.1 G/DL (33.0-37.0); MEAN PLATELET VOLUME 8.4 FL (7.4-10.4); PLATELET COUNT 445 /CUMM (130-400); RBC DISTRIBUTION WIDTH 14.2 % (11.5-14.5); RED BLOOD CELL CT 3.57 /CUMM (4.20-5.40); WHITE BLOOD CELL COUNT 6.6 /CUMM (4.8-10.8)
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
--- NOTE | 2017-11-20 14:53 | PN- Infect Dx ---
Subjective Subjective: Afebrile without new complaints Objective Last 24 Hrs of Vital Signs/I&O Vital Signs Date Time Temp Pulse Resp B/P B/P Pulse O2 O2 Flow FiO2 Mean Ox Delivery Rate 11/20 0648 97.7 52 18 118/68 97 11/19 2152 97.7 68 18 114/76 97 Room Air 11/19 1518 98.7 70 20 122/80 97 Room Air Intake & Output 11/20 1600 11/20 0800 11/20 0000 Intake Total 889 424 4981 Output Total 0 25 Balance 650 360 995 Intake, IV 20 Intake, Oral 547 082 3968 Output, 0 25 Drainage Physical Exam Other Physical Findings: She appears comfortable in no acute distress Back right buttock with [address], with 70 mL output yesterday from the original drain and 35 mL from the most recent drain Results Last 24 Hours of Lab Results: Laboratory Tests 11/20 0710 Chemistry Sodium (137 - 145 mmol/L) 142 Potassium (3.5 - 5.1 mmol/L) 4.4 Chloride (98 - 107 mmol/L) 102 Carbon Dioxide (22 - 30 mmol/L) 29 Anion Gap (5 - 16) 12 BUN (7 - 17 mg/dL) 7 Creatinine (0.5 - 1.0 mg/dL) 0.6 Estimated GFR (>60 ml/min) > 60 BUN/Creatinine Ratio (7 - 25 %) 11.7 Hematology CBC w Diff NO MAN DIFF REQ WBC (4.8 - 10.8 /CUMM) 6.6 RBC (4.20 - 5.40 /CUMM) 3.57 L Hgb (12.0 - 16.0 G/DL) 10.4 L Hct (37 - 47 %) 31.4 L MCV (81.0 - 99.0 FL) 88.0 MCH (27.0 - 31.0 PG) 29.2 RDW (11.5 - 14.5 %) 14.2 Plt Count (130 - 400 /CUMM) 445 H MPV (7.4 - 10.4 FL) 8.4 Gran % (42.2 - 75.2 %) 53.7 Lymphocytes % (20.5 - 51.1 %) 36.1 Monocytes % (1.7 - 9.3 %) 7.0 Eosinophils % (0 - 5 %) 2.6 Basophils % (0.0 - 2.0 %) 0.6 Absolute Granulocytes (1.4 - 6.5 /CUMM) 3.6 Absolute Lymphocytes (1.2 - 3.4 /CUMM) 2.4 Absolute Monocytes (0.10 - 0.60 /CUMM) 0.5 Absolute Eosinophils (0.0 - 0.7 /CUMM) 0.2 Absolute Basophils (0.0 - 0.2 /CUMM) 0 PUBS MCHC (33.0 - 37.0 G/DL) 33.1 Last 24 Hours of Gabe Results: No new cultures Assessment/Plan Impression: Stable, with temperatures and white blood cell count remaining normal, on Ciprofloxacin for Acinetobacter, which was cultured from the initial aspiration of her right buttock abscess, with resolution of the erythema and induration on the lateral aspect of her right buttock since placement of the new catheter 6 days ago, with minimal drainage from this catheter but with continued drainage from the initial catheter that was placed 10 days ago. Have reviewed the recent CT with IR, who feels that the loculated collection seen is being drained by the current catheter and, therefore, does not feel that further intervention is indicated at this time. Suggestion: 1. Consider repeat CT scan of the pelvis, with her left side down, once the drainage from her original drain has decreased (perhaps by November 22) 2. Continue Ciprofloxacin
[2017-11-20 15:31] VITALS: BP 120/74
[2017-11-20 22:58] VITALS: BP 121/57
[2017-11-21 07:27] VITALS: BP 134/76
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
[2017-11-21 14:25] VITALS: BP 140/78
[2017-11-21 22:26] VITALS: BP 132/72
[2017-11-22 06:11] VITALS: BP 128/62
[2017-11-22 08:14] LABS: ABSOLUTE BASOPHIL COUNT 0.1 /CUMM (0.0-0.2); ABSOLUTE EOSINOPHIL COUNT 0.2 /CUMM (0.0-0.7); ABSOLUTE GRANULOCYTE CT 3.9 /CUMM (1.4-6.5); ABSOLUTE LYMPH COUNT 2.5 /CUMM (1.2-3.4); ABSOLUTE MONOCYTE COUNT 0.5 /CUMM (0.10-0.60); BASOPHIL % 0.8 % (0.0-2.0); EOSINOPHIL % 2.9 % (0-5); GRANULOCYTE % 54.4 % (42.2-75.2); HEMATOCRIT 33.3 % (37-47); MEAN CORPUSCULAR HGB 29.3 PG (27.0-31.0); MEAN CORPUSCULAR HGB CONC 33.3 G/DL (33.0-37.0); MEAN CORPUSCULAR VOLUME 88.2 FL (81.0-99.0); MEAN PLATELET VOLUME 8.4 FL (7.4-10.4); PLATELET COUNT 477 /CUMM (130-400); RBC DISTRIBUTION WIDTH 14.9 % (11.5-14.5); RED BLOOD CELL CT 3.78 /CUMM (4.20-5.40); WHITE BLOOD CELL COUNT 7.2 /CUMM (4.8-10.8)
--- NOTE | 2017-11-22 12:41 | PN- Infect Dx ---
Subjective Subjective: Afebrile without complaints Objective Last 24 Hrs of Vital Signs/I&O Vital Signs Date Time Temp Pulse Resp B/P B/P Pulse O2 O2 Flow FiO2 Mean Ox Delivery Rate 11/22 0939 62 132/70 11/22 0611 98.4 62 20 128/62 95 CPAP 11/21 2226 97.6 66 20 132/72 99 Room Air 11/21 1425 97.8 71 20 140/78 98 Room Air Intake & Output 11/22 1600 11/22 0800 11/22 0000 Intake Total Output Total 30 Balance -30 Output, 30 Drainage Physical Exam Other Physical Findings: She appears comfortable in no acute distress Back right buttock with no erythema or induration; the original drain remains in place with 10 mL output yesterday and 30 mL overnight; the most recently placed drain has been removed Results Last 24 Hours of Lab Results: Laboratory Tests 11/22 0700 Chemistry Sodium (137 - 145 mmol/L) 142 Potassium (3.5 - 5.1 mmol/L) 4.5 Chloride (98 - 107 mmol/L) 102 Carbon Dioxide (22 - 30 mmol/L) 28 Anion Gap (5 - 16) 12 BUN (7 - 17 mg/dL) 11 Creatinine (0.5 - 1.0 mg/dL) 0.6 Estimated GFR (>60 ml/min) > 60 BUN/Creatinine Ratio (7 - 25 %) 18.3 Hematology CBC w Diff NO MAN DIFF REQ WBC (4.8 - 10.8 /CUMM) 7.2 RBC (4.20 - 5.40 /CUMM) 3.78 L Hgb (12.0 - 16.0 G/DL) 11.1 L Hct (37 - 47 %) 33.3 L MCV (81.0 - 99.0 FL) 88.2 MCH (27.0 - 31.0 PG) 29.3 RDW (11.5 - 14.5 %) 14.9 H Plt Count (130 - 400 /CUMM) 477 H MPV (7.4 - 10.4 FL) 8.4 Gran % (42.2 - 75.2 %) 54.4 Lymphocytes % (20.5 - 51.1 %) 34.3 Monocytes % (1.7 - 9.3 %) 7.6 Eosinophils % (0 - 5 %) 2.9 Basophils % (0.0 - 2.0 %) 0.8 Absolute Granulocytes (1.4 - 6.5 /CUMM) 3.9 Absolute Lymphocytes (1.2 - 3.4 /CUMM) 2.5 Absolute Monocytes (0.10 - 0.60 /CUMM) 0.5 Absolute Eosinophils (0.0 - 0.7 /CUMM) 0.2 Absolute Basophils (0.0 - 0.2 /CUMM) 0.1 PUBS MCHC (33.0 - 37.0 G/DL) 33.3 Last 24 Hours of Gabe Results: No new cultures Assessment/Plan Impression: Stable, with temperatures and white blood cell count remaining normal, on Ciprofloxacin for Acinetobacter, which was cultured from the initial aspiration of her right buttock abscess, with resolution of the erythema and induration on the lateral aspect of her right buttock since placement of the new catheter 8 days ago, with minimal drainage from this catheter, but with continued drainage from the initial catheter that was placed 12 days ago. Her repeat CT from today reveals no change in the residual collection, which is presumably being drained by the original catheter and, after discussion with IR, the decision was made to keep this catheter in but to remove the most recently placed catheter, which has not been draining. The original catheter can ultimately be removed when her drainage has decreased to less than 15 mL a day for at least 2 days. Suggestion: 1. Continue flushing of the catheter and monitoring of the drainage from the catheter still in place 2. Ultimate removal of this catheter when drainage has decreased to a minimum as noted above 3. Continue Ciprofloxacin
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
--- NOTE | 2017-11-22 13:47 | CT SCAN REPORT ---
EXAMINATION: CT PELVIS WITHOUT CONTRAST CLINICAL INFORMATION: Right buttock abscess. COMPARISON: CT pelvis 11/18/2017 TECHNIQUE: Helical scanning was performed with submillimeter collimation through the pelvis. Sagittal and coronal multiplanar 2-D reconstructions were obtained. DLP: 866.31 mGy-cm FINDINGS: PELVIS: No evidence of bowel obstruction. There is sigmoid diverticulosis without evidence of diverticulitis. No pelvic lymphadenopathy. Unremarkable CT appearance of the uterus and ovaries. No free fluid or organized fluid collections in the pelvis. There are 2 pigtail catheters in the subcutaneous tissues overlying the right buttocks. No significant residual fluid collection noted adjacent to the lateral catheter. There is no significant residual fluid surrounding the more medial of the 2 catheters; however, slightly superior and medial to this catheter there is a similar thin, lobulated fluid collection which measures approximately 6.0 x 3.6 x 3.2 cm (CC x AP x TR) that may be in continuity with the more medial of the 2 drains as best seen on the coronal images. Between the 2 drains slightly inferiorly, there is some amorphous, predominantly phlegmonous change again seen. IMPRESSION: The overall appearance of the right buttock subcutaneous catheters and small residual collections has not significantly changed compared with the prior exam. No residual fluid was visualized adjacent to the lateral catheter and this catheter was not draining any additional fluid. This catheter was removed at the bedside at the time of imaging. Due to the small residual collection superior medial to the remaining catheter, a decision was made to leave this catheter in place. Would recommend leaving this catheter in place until there is less than 20 mL of drainage per day. At that point, consider removal of the catheter based on the patient's clinical symptoms. Findings were discussed with Dr. Lawson at the time of imaging.
--- NOTE | 2017-11-22 13:55 | Patient Discharge Instructions ---
Discharge Instructions General Discharge Information Special Instructions: Please follow up with your pcp in 1-2 weeks. Please continue recording the discharge amount from your drain. Please follow up with Dr. Lawson's call on saturday. Please follow Dr. Lawson's instructions on when to get your drain removed. Please continue your antibiotics until your drain is removed. Acute Coronary Syndrome Inclusion Criteria At DC or during hospital stay patient has or had the following: ACS DIAGNOSIS No Discharge Core Measures Meds if any: Prescribed or Continued at Discharge Meds if any: NOT Prescribed or Continued at Discharge Congestive Heart Failure Inclusion Criteria At DC or during hospital stay patient has or had the following: CHF DIAGNOSIS No Discharge Core Measures Meds if any: Prescribed or Continued at Discharge Meds if any: NOT Prescribed or Continued at Discharge Cerebrovascular accident Inclusion Criteria At DC or during hospital stay patient has or had the following: CVA/TIA Diagnosis No Discharge Core Measures Meds if any: Prescribed or Continued at Discharge Meds if any: NOT Prescribed or Continued at Discharge Venous thromboembolism Inclusion Criteria VTE Diagnosis No VTE Type NONE VTE Confirmed by (Test) NONE Discharge Core Measures - Per Current guidelines, there needs to be overlap - treatment for the first 5 days of Warfarin therapy. - If discharged on Warfarin prior to 5 days of - overlap therapy, the patient will need to be - assessed for post discharge needs including - *Post discharge parental anticoagulation - *Warfarin and/or parental anticoagulation education - *Follow up date to check INR post discharge At least 5 days overlap therapy as Inpatient No Meds if any: Prescribed or Continued at Discharge Note: Overlap Therapy is Warfarin and Anticoagulant Meds if any: NOT Prescribed or Continued at Discharge
[2017-11-22 14:30] VITALS: BP 118/64
[2017-11-22 22:51] VITALS: BP 130/70
[2017-11-23 06:38] VITALS: BP 127/80
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
[2017-11-23 14:23] VITALS: BP 125/70
[2017-11-23 23:27] VITALS: BP 132/70
[2017-11-24 06:14] VITALS: BP 104/66
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
--- NOTE | 2017-11-24 13:22 | PN- Infect Dx ---
Subjective Subjective: Afebrile. She is upset regarding her prolonged hospital stay. Objective Last 24 Hrs of Vital Signs/I&O Vital Signs Date Time Temp Pulse Resp B/P B/P Pulse O2 O2 Flow FiO2 Mean Ox Delivery Rate 11/24 1116 64 122/78 11/24 0614 98.1 64 20 104/66 92 11/23 2327 98.0 74 20 132/70 95 Room Air 11/23 1423 98.0 76 20 125/70 98 Room Air Intake & Output 11/24 1600 11/24 0800 11/24 0000 Intake Total 240 480 Output Total 10 30 Balance 230 450 Intake, Oral 240 480 Output, 10 30 Drainage Physical Exam Other Physical Findings: She is visibly upset and tearful regarding her hospital stay but she reports no new discomfort. Back right buttock with one catheter in in place, with 35 mL output yesterday and 10 mL overnight Results Last 24 Hours of Lab Results: No new labs Last 24 Hours of Gabe Results: No new cultures Assessment/Plan Impression: Stable, with temperatures and white blood cell count remaining normal, on Ciprofloxacin for Acinetobacter, cultured from the initial aspiration of her right buttock abscess, with the original catheter, initially placed 2 weeks ago, still in place and draining, though it appears that the drainage is decreasing. Her recent CT scan revealed no change in the residual collection, which is presumably being drained by this catheter, and she can be rescanned when the drainage has decreased. Suggestion: 1. Consider repeat CT of the pelvis, with the left side down, in the a.m. if her drainage has decreased 2. Continue Ciprofloxacin
[2017-11-24 15:06] VITALS: BP 152/84
[2017-11-24 21:57] VITALS: BP 118/78
[2017-11-25 06:39] VITALS: BP 144/79
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
[2017-11-25 09:50] VITALS: BP 140/80
[2017-11-25] MEDS ORDERED: CIPRO500 M1 PO ×2 (11:13→15:39)
[2017-11-25] MEDS ORDERED: ACIDOPHILUS1 EACH PO ×2 (11:13→15:39)
[2017-11-25] MEDS ORDERED: PERCOCET 5-3251 EACH PO ×2 (11:13→15:53)
[2017-11-25 12:13] LABS: ABSOLUTE BASOPHIL COUNT 0.1 /CUMM (0.0-0.2); ABSOLUTE EOSINOPHIL COUNT 0.2 /CUMM (0.0-0.7); ABSOLUTE GRANULOCYTE CT 5.6 /CUMM (1.4-6.5); ABSOLUTE LYMPH COUNT 2.5 /CUMM (1.2-3.4); ABSOLUTE MONOCYTE COUNT 0.6 /CUMM (0.10-0.60); EOSINOPHIL % 2.1 % (0-5); GRANULOCYTE % 62.4 % (42.2-75.2); HEMATOCRIT 36.3 % (37-47); MEAN CORPUSCULAR HGB 28.7 PG (27.0-31.0); MEAN CORPUSCULAR HGB CONC 32.8 G/DL (33.0-37.0); MEAN CORPUSCULAR VOLUME 87.4 FL (81.0-99.0); MEAN PLATELET VOLUME 8.7 FL (7.4-10.4); PLATELET COUNT 504 /CUMM (130-400); RED BLOOD CELL CT 4.15 /CUMM (4.20-5.40); WHITE BLOOD CELL COUNT 8.9 /CUMM (4.8-10.8)
--- NOTE | 2017-11-25 14:36 | PN- Infect Dx ---
Subjective Subjective: Afebrile without complaints Objective Last 24 Hrs of Vital Signs/I&O Vital Signs Date Time Temp Pulse Resp B/P B/P Pulse O2 O2 Flow FiO2 Mean Ox Delivery Rate 11/25 0950 140/80 11/25 0639 98.2 62 20 144/79 99 11/25 0000 Room Air 11/24 2157 98.1 72 20 118/78 98 Room Air 11/24 1506 97.9 64 20 152/84 98 Room Air Intake & Output 11/25 1600 11/25 0800 11/25 0000 Intake Total 469 236 9838 Output Total 25 0 18 Balance 541 307 9440 Intake, IV 0 40 10 Intake, Oral 729 141 2149 Number 0 0 0 Bowel Movements Output, 25 0 18 Drainage Physical Exam Other Physical Findings: She appears comfortable in no acute distress Back right buttock drain with 28 mL output yesterday and 25 mL overnight Results Last 24 Hours of Lab Results: Laboratory Tests 11/25 1051 Hematology CBC w Diff NO MAN DIFF REQ WBC (4.8 - 10.8 /CUMM) 8.9 RBC (4.20 - 5.40 /CUMM) 4.15 L Hgb (12.0 - 16.0 G/DL) 11.9 L Hct (37 - 47 %) 36.3 L MCV (81.0 - 99.0 FL) 87.4 MCH (27.0 - 31.0 PG) 28.7 RDW (11.5 - 14.5 %) 14.0 Plt Count (130 - 400 /CUMM) 504 H MPV (7.4 - 10.4 FL) 8.7 Gran % (42.2 - 75.2 %) 62.4 Lymphocytes % (20.5 - 51.1 %) 27.4 Monocytes % (1.7 - 9.3 %) 7.1 Eosinophils % (0 - 5 %) 2.1 Basophils % (0.0 - 2.0 %) 1.0 Absolute Granulocytes (1.4 - 6.5 /CUMM) 5.6 Absolute Lymphocytes (1.2 - 3.4 /CUMM) 2.5 Absolute Monocytes (0.10 - 0.60 /CUMM) 0.6 Absolute Eosinophils (0.0 - 0.7 /CUMM) 0.2 Absolute Basophils (0.0 - 0.2 /CUMM) 0.1 PUBS MCHC (33.0 - 37.0 G/DL) 32.8 L Last 24 Hours of Gabe Results: No new cultures Assessment/Plan Impression: Stable, with temperatures and white blood cell count remaining normal, on Ciprofloxacin for Acinetobacter, cultured from the initial aspiration of her right buttock abscess, with the original catheter, initially placed 15 days ago, still in place and draining. Her recent CT scan revealed no change in the residual collection, which is presumably being drained by this catheter, and she is to be discharged with the catheter in place, with removal once the drainage has decreased to a minimum. She should be continued on antibiotics until the catheter is removed. Suggestion: 1. Will need to follow-up as an outpatient with removal of the catheter once the drainage has decreased to a minimum 2. Continue Ciprofloxacin until the catheter is removed
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
== END 2017-11-25 16:19 | disposition home health service (06) | DRG 603 ==
LOC: ERH 11:41 → 2NB 15:26 → ERHI 15:26 → ENRESERV 18:09 → ENTRNSPT 20:43 → 2NB 21:16 → CMPTRNSPT 21:27 → 2NB 11-15 09:57
PROVIDERS: Internal Medicine; Internal Medicine Hematology & Oncology; Physician Assistant Medical
PROC: 0J9930Z Drainage of Buttock Subcutaneous Tissue and Fascia with Drainage Device, Percutaneous Approach (ICD-10-PCS; principal; 2017-11-10)
PROC: 0J9930Z Drainage of Buttock Subcutaneous Tissue and Fascia with Drainage Device, Percutaneous Approach (ICD-10-PCS; 2017-11-14)
DX: L02.31 Cutaneous abscess of buttock (principal); E66.01 Morbid (severe) obesity due to excess calories; E87.1 Hypo-osmolality and hyponatremia; Z68.43 Body mass index [BMI] 50.0-59.9, adult; G62.9 Polyneuropathy, unspecified; J44.9 Chronic obstructive pulmonary disease, unspecified; I10 Essential (primary) hypertension; K21.9 Gastro-esophageal reflux disease without esophagitis; G89.29 Other chronic pain; F32.9 Major depressive disorder, single episode, unspecified; M54.5 Low back pain; G47.33 Obstructive sleep apnea (adult) (pediatric); J30.1 Allergic rhinitis due to pollen; Z87.891 Personal history of nicotine dependence; E78.5 Hyperlipidemia, unspecified
CPT/HCPCS: 2NBSP; 87070; 87075; 36415; 82436; 87040; 93005; 93010; 96374; 96375; J0131; J1644; J3370; J3490; J7040

== ENCOUNTER 2018-04-28 00:52 | Inpatient (IN) | payer OTHER ==
[~2018-04-28] VITALS: Ht 160 cm; Wt 133.8 kg
[~2018-04-28 00:52] MED LIST changes: +ACIDOPHILUS1 EACH PO; +CIPRO500 M1 PO; +MORPHINE SULFAT30 M3 PO; +PERCOCET 5-3251 EACH PO
--- NOTE | 2018-04-28 14:25 | Admission Core Measures ---
Acute Coronary Syndrome (CM) ACS Core Measures Acute Coronary Syndrome Diagnosis No Congestive Heart Failure (NEW) CHF Core Measures Congestive Heart Failure Diagnosis No Cerebrovascular Accident CVA Core Measures CVA/TIA Diagnosis No Venous Thromboembolism VTE Core Joe (View Protocol) VTE Risk Factors Surgery No Mechanical VTE Prophylaxis d/t N/A MechProphylax Ordered No VTE Pharm Prophylaxis d/t NA PharmProphylax ordered Problem List As ranked by this Provider includes Assessment & Plan 1. Painful total knee replacement, right HOME MEDS Home Med List Albuterol Sulfate (Proair Hfa) 90 MCG HFA.AER.AD 2 PUF INH AD PRN RESP. ( Reported) Aspirin (Ecotrin*) 81 MG TABLET.DR 1 TAB PO DAILY HEART/BLOOD (Reported) Calcium (Elemental-Fr Calcarb) (Calcium Carbonate) 600 MG CALCIUM (1,500 MG) TABLET 2 TAB PO DAILY SUPPLEMENT (Reported) Cetirizine HCl (Zyrtec) 10 MG TABLET 1 TAB PO QAM ALLERGIES (Reported) Cyclobenzaprine HCl 5 MG TABLET 1 TAB PO TID PRN MUSCLE SPASMS (Reported) Ergocalciferol (Vitamin D2) (Vitamin D2) 50,000 UNIT CAPSULE 1 CAP PO QSUN SUPPLEMENT (Reported) Esomeprazole (Nexium) 40 MG CAPSULE.DR 1 CAP PO QAM GI (Reported) Fluoxetine HCl 20 MG CAPSULE 1 CAP PO QAM MENTAL HEALTH (Reported) Fluticasone/Salmeterol (Advair 250-50 Diskus) 250 MCG-50 MCG/DOSE BLST.W.DEV 1 PUF INH BID RESP. (Reported) Hydrochlorothiazide 25 MG TABLET 1 TAB PO QAM BP (Reported) Lidocaine/Prilocaine (Lidocaine-Prilocaine Cream) 2.5 %-2.5 % CREAM..G. 1 NANCY TOP AD PRN BACK PAIN (Reported) Lisinopril 10 MG TABLET 1 TAB PO QAM BP (Reported) Montelukast Sodium 10 MG TABLET 1 TAB PO QPM RESP. (Reported) Morphine Sulfate (Morphine Sulfate ER) 30 MG TABLET.ER 1 TAB PO BIDP PRN PAIN (Reported) Multiple Vitamin (Multivitamins) 1 EACH TABLET 1 TAB PO QAM SUPPLEMENT ( Reported) Oxycodone HCl/Acetaminophen (Percocet 7.5-325 MG Tablet) 7.5 MG-325 MG TABLET 1 TAB PO Q4H PRN PAIN (Reported) Pregabalin (Lyrica) 75 MG CAPSULE 1 CAP PO TID NERVE PAIN (Reported)
[2018-04-28] MEDS ORDERED: PERCOCET 5-3251 EACH PO (14:28)
[2018-04-28] MEDS ORDERED: MIRALAX17 G1 PO (14:28)
[2018-04-28] MEDS ORDERED: COUMADIN2.5 M1 PO (14:28)
[2018-04-28] MEDS ORDERED: COLACE100 M1 PO (14:28)
--- NOTE | 2018-04-28 14:33 | Patient Discharge Instructions ---
Discharge Instructions General Discharge Information You were seen/treated for: Right knee pain related to total knee replacement You had these procedures: Revision right total knee replacement Watch for these problems: Increasing pain despite the use of pain medication Increasing redness, warmth or swelling Drainage of any type from incision Inability to bear weight on operative leg Persistent nausea and vomiting Fever greater than 101.5 degrees Do not soak the wound: Yes No bath, but you may shower: Yes Other wound care: Please keep wound clean and dry. No ointments or lotions of any type on or near incision at any time. No exceptions. Your dressing will be changed by your nurse on the second day after your surgery. Daily dry dressing changes are recommended each day thereafter. Do not soak your wound in a bath or pool at any time until otherwise indicated by your surgeon. You may shower, please dry wound immediately after shower with a clean towel. Special Instructions: Coumadin: You are taking this medication to help prevent the development of blood clots. Another name for this medication is warfarin. The daily dose is subject to change. It is based on lab work called INR which will be tested at a minimum of two times per week. Dr. Rossi will instruct you as to how much Coumadin you are to be taking. Please be sure to have communicated with him or his office regarding your doses prior to taking. Constipation: Pain medication can cause constipation. Your surgeon has recommended that you take Colace and miralax each day. You may discontinue this medication if you develop loose stool or diarrhea. If you wish to continue this medication, it is available over the counter. If you are unable to move your bowels after several days, if you are unable to pass gas and are developing bloating, nausea, or vomiting as a result, please contact your doctor. Diet Continue normal diet: Yes Recommended Diet: Regular Activity Full Activity/No Limits: No Activity Self Limited: Yes Pounds, do NOT lift more than: 10 Acute Coronary Syndrome Inclusion Criteria At DC or during hospital stay patient has or had the following: ACS DIAGNOSIS No Discharge Core Measures Meds if any: Prescribed or Continued at Discharge Meds if any: NOT Prescribed or Continued at Discharge Congestive Heart Failure Inclusion Criteria At DC or during hospital stay patient has or had the following: CHF DIAGNOSIS No Discharge Core Measures Meds if any: Prescribed or Continued at Discharge Meds if any: NOT Prescribed or Continued at Discharge Cerebrovascular accident Inclusion Criteria At DC or during hospital stay patient has or had the following: CVA/TIA Diagnosis No Discharge Core Measures Meds if any: Prescribed or Continued at Discharge Meds if any: NOT Prescribed or Continued at Discharge Venous thromboembolism Inclusion Criteria VTE Diagnosis No VTE Type NONE VTE Confirmed by (Test) NONE Discharge Core Measures - Per Current guidelines, there needs to be overlap - treatment for the first 5 days of Warfarin therapy. - If discharged on Warfarin prior to 5 days of - overlap therapy, the patient will need to be - assessed for post discharge needs including - *Post discharge parental anticoagulation - *Warfarin and/or parental anticoagulation education - *Follow up date to check INR post discharge At least 5 days overlap therapy as Inpatient No Meds if any: Prescribed or Continued at Discharge Note: Overlap Therapy is Warfarin and Anticoagulant Meds if any: NOT Prescribed or Continued at Discharge
--- NOTE | 2018-04-28 14:37 | Surgical Discharge Summary ---
See Addendum Visit Information Visit Dates Admission Date: 04/28/18 Discharge Date: 05/01/18 History of Present Illness Chief Complaint: Right knee pain related to history of total knee replacement Medical History Neurological: peripheral neuropathy EENT: allergies Cardiovascular: hypertension, hyperlipidemia Respiratory: asthma, obstructive sleep apnea Gastrointestinal: GERD Hepatic: NONE Renal: NONE Musculoskeletal: CHRONIC LOW BACK PAIN Psychiatric: anxiety Blood Disorders: NONE Cancer(s): NONE History of MRSA: No History of VRE: No History of CDIFF: No Influenza Vaccine: 08/04/17 Surgical History Pertinent Surgical History: knee replacement (right) Family History Relations & Conditions If Any: FATHER FH: pancreatic cancer, Onset: 60+. UNCLE FH: lung cancer, Onset: 60+. FH: pancreatic cancer, Onset: 60+. MOTHER FH: diabetes mellitus MOTHER Psychosocial History Who Do You Live With? Family Services at Home: None What is Your Primary Language? Ghanaian Review of Systems: See H&P Hospital Course Course Attending Physician: Enid PEDERSEN,[place] Primary Care Physician: Jose Jernigan MD Hospital Course: Patient was admitted to the hospital for a revision right total knee replacement. The procedure was tolerated well and patient was transferred to a general surgical floor. Diet was advanced and tolerated. The patient was evaluated and treated by physical therapy. At the time of hospital discharge, the vital signs were stable, neurovascular status was intact, and pain was controlled with the use of oral pain medications. Allergies: Coded Allergies: ceftriaxone (Intermediate, ITCHY, RED LINE UP ARM 04/17/18) sulfite (Intermediate, HIVES 04/17/18) Disposition Summary Disposition Principal Diagnosis: Painful right total knee replacement Additional Diagnosis: None Discharge Disposition: SNF Discharge Instructions General Discharge Information Code Status: Full Code Patient's Diet: Regular, advance as tolerated Patient's Activity: WBAT Follow-Up Instructions/Appts: Follow up with Dr. Rossi in 2 weeks from date of surgery, please call office to arrange/confirm this appointment. Medications at Discharge Discharge Medications: Stop taking the following medications: Aspirin (Ecotrin*) 81 MG TABLET. ORAL DAILY Oxycodone HCl/Acetaminophen (Percocet 7.5-325 MG Tablet) 7.5 MG-325 MG TABLET ORAL Q4H as needed for PAIN Qty = 120 Continue taking these medications: Fluoxetine HCl (Fluoxetine HCl) 20 MG CAPSULE 1 Capsule ORAL Every Morning Qty = 90 Comments: Last Taken: 05/01/18 Time: 08:10 Hydrochlorothiazide (Hydrochlorothiazide) 25 MG TABLET 1 Tablet ORAL Every Morning Qty = 90 Comments: Last Taken: 05/01/18 Time: 108:10 Lidocaine/Prilocaine (Lidocaine-Prilocaine Cream) 2.5 %-2.5 % CREAM..G. 1 Application On the skin As Directed as needed for BACK PAIN Qty = 30 Comments: NOT GIVEN IN THE HOSPITAL Esomeprazole (Nexium) 40 MG CAPSULE.DR 1 Capsule ORAL Every Morning Qty = 90 Comments: NOT TAKEN IN HOSPITAL Lisinopril (Lisinopril) 10 MG TABLET 1 Tablet ORAL Every Morning Qty = 90 Comments: Last Taken: 05/01/18 Time: 08:12 Fluticasone/Salmeterol (Advair 250-50 Diskus) 250 MCG-50 MCG/DOSE BLST.W.DEV 1 Puff Inhale through mouth TWICE DAILY Qty = 180 Comments: NOT GIVEN Montelukast Sodium (Montelukast Sodium) 10 MG TABLET 1 Tablet ORAL Every night Qty = 90 Comments: Last Taken: 04/30/18 Time: 22:10 Albuterol Sulfate (Proair Hfa) 90 MCG HFA.AER.AD 2 Puff Inhale through mouth As Directed as needed for RESP. Qty = 9 Comments: NOT GIVEN IN THE HOSPITAL Cetirizine HCl (Zyrtec) 10 MG TABLET 1 Tablet ORAL Every Morning Comments: NOT TAKEN IN HOSPITAL Calcium (Elemental-Fr Calcarb) (Calcium Carbonate) 600 MG CALCIUM (1,500 MG) TABLET 2 Tablet ORAL DAILY Comments: NOT GIVEN IN THE HOSPITAL Multiple Vitamin (Multivitamins) 1 EACH TABLET 1 Tablet ORAL Every Morning Comments: NOT GIVEN IN THE HOSPITAL Ergocalciferol (Vitamin D2) (Vitamin D2) 50,000 UNIT CAPSULE 1 Capsule ORAL EVERY SATURDAY Qty = 12 Comments: NOT GIVEN IN THE HOSPITAL Cyclobenzaprine HCl (Cyclobenzaprine HCl) 5 MG TABLET 1 Tablet ORAL THREE TIMES DAILY as needed for MUSCLE SPASMS Qty = 90 Comments: NOT GIVEN IN THE HOSPITAL Pregabalin (Lyrica) 75 MG CAPSULE 1 Capsule ORAL THREE TIMES DAILY Qty = 270 Comments: Last Taken: 05/01/18 Time: 08:09 Morphine Sulfate (Morphine Sulfate ER) 30 MG TABLET.ER 1 Tablet ORAL 2 x Daily as needed as needed for PAIN Comments: Last Taken: 05/01/18 Time: 08:09 Start taking the following new medications: Polyethylene Glycol 3350 (Miralax) 17 GRAM POWD.PACK 1 Packet ORAL DAILY Qty = 7 No Refills Instructions: dissolve in water, DISCONTINUE USE IF YOU DEVELOP LOOSE STOOL OR DIARRHEA Comments: Last Taken: 05/01/18 Time: 08:09 Docusate Sodium (Colace) 100 MG CAPSULE 1 Capsule ORAL TWICE DAILY Qty = 14 No Refills Instructions: DISCONTINUE USE IF YOU DEVELOP LOOSE STOOL OR DIARRHEA Comments: Last Taken: 05/01/18 Time: 08:10 Oxycodone HCl/Acetaminophen (Percocet 5-325 MG Tablet) 5 MG-325 MG TABLET 1-2 Tablet ORAL EVERY 4-6 HOURS as needed for PAIN Qty = 36 No Refills Instructions: Comments: PT RECIEVED OXYCODONE 15MG 05/01/18 @10:21 Warfarin Sodium (Coumadin) 2.5 MG TABLET 1 Tablet ORAL DAILY Qty = 30 No Refills Instructions: DOSE MAY CHANGE DAILY, CONFIRM DOSE WITH DR. ROSSI PRIOR TO TAKING Comments: Last Taken: 05/01/18 Time: 12:12
[2018-04-28 15:57] VITALS: BP 140/78
--- NOTE | 2018-04-28 16:17 | PN- Orthopedic ---
Subjective Subjective: Postop check: Patient resting comfortably in her room. She complains of throbbing sensation in the right knee. No other complaints. She is in good spirits. Of note, She is on chronic opioid therapy for chronic back pain MS Contin 30 mg twice daily and OxyContin 10 mg every 4 hours as well as Lyrica 75 mg 3 times daily Objective Vital Signs and I&Os Vital Signs Date Time Temp Pulse Resp B/P B/P Pulse O2 O2 Flow FiO2 Mean Ox Delivery Rate 04/28 1557 97.9 86 18 140/78 98 Room Air Physical Exam: Well-developed well-nourished no apparent distress. HEENT: Atraumatic, extraocular motion intact Neck: Supple, no lymphadenopathy Respiratory: No respiratory distress Extremities: No edema RIGHT lower extremity dressing in place, Dressing clean dry and intact Compression wrap in place. ALPS in place Neurovascularly intact distally Bilateral calves are supple, nontender. Neuro: Alert and oriented x3 Psych: Mood affect normal, normal memory normal judgment. Skin: Warm and dry, no rash on exposed skin Assessment/Plan Assessment/Plan Postop day #0 status post right total knee arthroplasty revision of tibial component secondary to loosening Perioperative antibiotics. Follow intraoperative cultures Chronic pain with chronic opioid therapy: Titrate pain medication as needed. Out of bed Physical therapy, weightbearing as tolerated IV fluids Regular diet Follow a.m. labs Coumadin for DVT prophylaxis starting tonight ALPS for DVT prophylaxis Regular home meds Dressing change postop day 2 Core Measures Venous Thromboembolism VTE Risk Factors Surgery No Mechanical VTE Prophylaxis d/t N/A MechProphylax Ordered No VTE Pharm Prophylaxis d/t NA PharmProphylax ordered
[2018-04-28 18:02] VITALS: BP 130/80
[2018-04-28 20:02] VITALS: BP 122/80
[2018-04-28 22:03] VITALS: BP 130/80
[2018-04-29 01:55] VITALS: BP 128/68
[2018-04-29 06:31] VITALS: BP 130/60
--- NOTE | 2018-04-29 07:55 | PN- Orthopedic ---
See Addendum Subjective Subjective: Required new iv placement overnight, feels iv meds more effective with new catheter. Reports pain is controlled with current pain regimen. Has yet to ambulate. Has pineda catheter. Denies chest pain, shortness of breath and difficulty breathing. Denies nausea and vomitting. Is eager to get oob today. Objective Vital Signs and I&Os Vital Signs Date Time Temp Pulse Resp B/P B/P Pulse O2 O2 Flow FiO2 Mean Ox Delivery Rate 04/29 0631 98.3 76 20 130/60 97 Room Air 04/29 0155 98.8 72 20 128/68 96 Room Air 04/28 2203 98.5 83 20 130/80 94 Room Air 04/28 2002 98.3 93 20 122/80 95 Room Air 04/28 1802 98.1 91 20 130/80 96 Room Air 04/28 1557 97.9 86 18 140/78 98 Room Air Intake & Output 04/29 0800 04/29 0000 04/28 1600 04/28 0800 04/28 0000 04/27 1600 Intake Total 475 Output Total 1000 1300 Balance -1000 -825 Intake, IV 475 Output, Urine 1000 1300 Patient 195 lb 195 lb Weight Weight Bed scale Measurement Method Physical Exam: General: Alert and oriented x3, no acute distress Cardiac: RRR, s1s2 Pulm: C T A b, non-labored respiratory effort Abd: Obese, non-distended, non-tender Extremities: Moves all extremities, distal sensation grossly intact. Skin warm and well pefused. Bilateral calves soft and non-tender Surgical site: Right knee, full extension, no varus or valgus deformity. Dressing dry and intact. Assessment/Plan Assessment/Plan This is a 63 year old female, POD 1, s/p revision R tkr -Continue current pain regimen -DC pineda catheter -DC iv fluids -OOB, wbat -Continue current bowel regimen -Coumadin: dose daily per INR, target INR 2.5 -Follow up am labs Will discuss plan of care with Dr. Rossi Core Measures Venous Thromboembolism VTE Risk Factors Surgery No Mechanical VTE Prophylaxis d/t N/A MechProphylax Ordered No VTE Pharm Prophylaxis d/t NA PharmProphylax ordered
[2018-04-29 08:16] LABS: ABSOLUTE BASOPHIL COUNT 0 /CUMM (0.0-0.2); ABSOLUTE EOSINOPHIL COUNT 0 /CUMM (0.0-0.7); ABSOLUTE GRANULOCYTE CT 7.3 /CUMM (1.4-6.5); ABSOLUTE LYMPH COUNT 1.5 /CUMM (1.2-3.4); BASOPHIL % 0.3 % (0.0-2.0); EOSINOPHIL % 0.1 % (0-5); GRANULOCYTE % 73.8 % (42.2-75.2); MEAN CORPUSCULAR HGB 27.8 PG (27.0-31.0); MEAN CORPUSCULAR HGB CONC 33.2 G/DL (33.0-37.0); MEAN CORPUSCULAR VOLUME 83.7 FL (81.0-99.0); MEAN PLATELET VOLUME 8.6 FL (7.4-10.4); PLATELET COUNT 343 /CUMM (130-400); RBC DISTRIBUTION WIDTH 15.4 % (11.5-14.5); RED BLOOD CELL CT 3.76 /CUMM (4.20-5.40); WHITE BLOOD CELL COUNT 9.9 /CUMM (4.8-10.8)
[2018-04-29 08:35] LABS: HEMATOCRIT 31.5 % (37-47)
[2018-04-29 09:08] LABS: PT 11.7 SEC (9.4-12.5)
[2018-04-29 11:51] VITALS: BP 132/70
--- NOTE | 2018-04-29 12:42 | Operative Report ---
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 Post-Operative Diagnosis: Same with final pathology and microbiology pending Estimated Blood Loss: 150cc Surgeon/Train Caller: [place] PEDERSEN,Govind Onofre MD Anesthesia: block Implants: Serena tibial component 17 mm by 100mm Posterior stabilized polyethylene component size 2 Drains: None Specimens: Tibial component, hypertrophied synovium, synovial fluid, serous membrane under tibial component Microbiology: Synovial fluid, membrane under the tibial component, Tourniquet: 104 minutes, 28 minutes Complications: None Condition: Stable Operative Indication: Patient is a 63-year-old woman who has a history of a right total knee arthro[place] [address] Harp. She developed knee pain and evaluation revealed findings consistent with a loose tibial component. She had complicating factors that developed from unrelated problems including a spinal abscess following epidural injection done elsewhere. Developed increasing right lower extremity symptoms as well. I was asked to take over orthopedic care for this patient by Dr. Harp. Her workup included tests for possibility of septic right total knee arthroplasty. Workup included aspirations as well as serial sed rate and CRP. The aspirations did not reveal any sign of but due to the abnormal lab work as well as patient's recent history, suspicion was relatively high. The surgical plan was to proceed with total knee arthroplasty revision which would include the tibial component at the very least. There was a possibility that the femoral component would need to be revised as well depending on intraoperative findings. Also, there was a possibility of removal of all components and placement of antibiotic cement spacer if there was any sign of infection during surgery which also included intraoperative stat Gram stain cultures of fluid as well as tissue. Patient wished to proceed with the revision surgery after risks benefits and expectations of the surgical procedure were discussed which included but were not limited to persistent knee pain, need for subsequent surgery, infection, DVT, injury of blood vessels or nerves, anesthesia risks. Operative/Procedure Note Note: Patient was brought to the operating room and transferred to the operating table. Once under appropriate anesthesia the right lower extremity was prepped and draped in standard fashion. Preoperative IV antibiotic's were given prophylactically. The leg was elevated exsanguinated and tourniquet was inflated. A standard incision was made through the previous incision site. Incision was taken down sharply to the underlying retinaculum. A medial retinacular approach was used to enter the knee joint. Prior to making the arthrotomy, I aspirated approximately 40 mL of slightly cloudy synovial fluid and sent for stat Gram stain and culture. The arthrotomy was made evacuation of the remainder of the synovial fluid was completed. Patient had a very hypertrophic synovial reaction with very from the synovium that was white colored. No clear-cut foreign body though that it appeared to be a foreign body reaction. I use rongeur to complete a synovectomy. This was done throughout the case as we exposed more of the joint medially laterally posteriorly. The tibial component was evaluated by removing any soft tissue intervening between the metal and cement. The tibial component was clearly loose. The femoral component was also evaluated. No evidence of loosening of the femoral component. Retractors were placed medial and laterally. Tibial exposure was done in order to sublux the tibia forward of the femur in order to remove the tibial component. Once this was done I removed the tibial component easily. The underlying cement mantle was also removed with osteotome. Patient had a large cement plug distally. Portions of this was removed using the cement splitter followed by the back scratching device that was passed through the intramedullary hole of the tibia. Copious irrigation was done throughout the surgery local exposure. Care was taken not to have any cement fragments go down into the tibial canal. Once this was completed I was able to visualize the posterior aspect of the joint and again removed the thickened and hypertrophied synovium from posterior aspect. I then was able to start prepping for the reinsertion of the tibial component but needed to wait for preliminary results from the microbiology lab. Once we received input from the lab I proceeded to prepare the proximal tibia. The preliminary reports are microbiology lab were few white cells no organisms seen. Similar findings were obtained with the soft tissue membrane underneath the tibial component. I proceeded to ream up to a size 17. Left the last reamer in place and constructed the intramedullary tibial guide for the tibial cut. This was made in neutral position. There was a defect medially that required an augment. The 5 mm cut was made medially and the standard 0 cut was made laterally. The tibia was then constructed. The trial was placed into the canal and I was able to do a close reduction with a polyethylene component. Patient had a PS component previously and proceeded with the same type of component. A 17 mm component would likely be necessary to balance the flexion-extension gaps appropriately. I evaluated the patella. It was some mild wear along the lateral facet. I did circumferentially clean out synovium around the patellar component to better visualize it and also to remove some scar tissue. Did trial reduction with the trial components the tibia. I was satisfied with full extension. No evidence of mid flexion instability. Flexion to about 120 to gravity. I then removed all trial components. Copious irrigation followed. The actual definitive component was constructed on the back table which included the medial augment of 5 mm as well as the 100 mm tibial stem and the size 2 component. I did need to downsize from the original component since the tibia was smaller due to the bony loss from previous surgery as well as the ostial lysis from the loosening tibia. The polyethylene component chosen was compatible with the size E femur. After copious irrigation of the bony surfaces the bony surface were dried and prepared for cement fixation. The initial tourniquet time was 104 minutes. Tourniquet was deflated for approximately 10 minutes and then reinflated for the cementing of the prosthetic component. The definitive component was impacted in place after the cement was ready. Excess cement was removed with curettes. The knee was taken out to full extension with the appropriate size polyethylene. Once the cement hardened I took the knee through range of motion. I was satisfied with the 17 mm polyethylene component. Copious irrigation the tibial tray followed. I major there was no remaining soft tissue, bone fragments or cement fragments within the tibial tray. The definitive size 17 mm PS component was impacted in place the locking mechanisms was confirmed and the locking screw was placed. Again patellar tracking was checked. Excellent patellar tracking no evidence of the need for any lateral releases. Full extension. No mid flexion instability and flexion to gravity to approximate 120. Copious irrigation followed and copious irrigation followed every level of closure. Tourniquet was deflated once again and hemostasis was obtained. Fascia was closed with interrupted #1 Vicryl suture. Subcutaneous tissues closed with 2-0 Vicryl in 2 layers and skin was closed with annie. Appropriate just his were applied and patient was awakened and taken the recovery room in good condition. No intraoperative complications. Blood loss was approximately 100 mL in total. Discharge Disposition: PACU
[2018-04-29 14:13] VITALS: BP 140/80
[2018-04-29 22:40] VITALS: BP 120/70
[2018-04-30 06:20] VITALS: BP 128/66
[2018-04-30 08:26] LABS: PT 16.5 SEC (9.4-12.5)
--- NOTE | 2018-04-30 08:32 | PN- Orthopedic ---
See Addendum Subjective Subjective: PT IN BED, STILL WITH 4/10 PAIN WITH 4MG IV MORPHINE Q2H. PT AND I DISCUSSED THE NEED TO STOP IV MEDICATION IN PREPARATION TO SEND HER HOME AND MAKE SHE WE CAN MANAGE HER PAIN WITH ORAL MEDS, SHE AGREED. AMBULATING WITH PT. VOIDING, TOLERATING DIET DENEIS PARESTHESIAS, CP/SOB, MILLAN Objective Vital Signs and I&Os Vital Signs Date Time Temp Pulse Resp B/P B/P Pulse O2 O2 Flow FiO2 Mean Ox Delivery Rate 04/30 0620 100.5 77 18 128/66 93 Room Air 04/29 2240 98.9 79 18 120/70 99 04/29 1413 98.9 77 20 140/80 98 Room Air 04/29 1151 98.9 87 20 132/70 96 Room Air Intake & Output 04/30 1600 04/30 0800 04/30 0000 04/29 1600 04/29 0800 04/29 0000 Intake Total 120 360 900 700 925 Output Total 1000 1650 Balance 120 360 900 -300 -725 Intake, IV 700 925 Intake, Oral 120 360 900 Number 0 0 Bowel Movements Output, Urine 1000 1650 Patient 307 lb 195 lb 195 lb Weight Weight Bed scale Measurement Method Physical Exam: GEN- NAD RESP- CLEAR CARDIAC- RRR ABD- SOFT, NT EXT- RIGHT KNEE DRESSING CHANGED, NO SIGNS OF INFECTION, NO DRAINAGE. CLEAN DRY DRESSING APPLIED. JANELLE IN PLACE. DISTAL SENSORY AND MOTOR FUNCTION INTACT. Assessment/Plan Assessment/Plan 63YO F SP RIGHT TOTAL KNEE REVISION POD2. STABLE. PAIN MANAGEMENT- DECREASING PRN IV MEDS, ADDING CELEBREX AND CHANGING ROXYCODONE TO PERCOCET REG DIET PT- WBAT BOWEL REGEMIN DC PLANNING- LIKE HOME WITH SERVICES TOMORROW FU OR CULTURES REGULAR HOME MEDS DVT PPX- COUMADIN AND ALPS Core Measures Venous Thromboembolism VTE Risk Factors Surgery No Mechanical VTE Prophylaxis d/t N/A MechProphylax Ordered No VTE Pharm Prophylaxis d/t NA PharmProphylax ordered
--- NOTE | 2018-04-30 10:56 | RADIOLOGY REPORT ---
EXAMINATION: XR KNEE, RIGHT CLINICAL INFORMATION: Status post revision of total knee arthroplasty. Routine postoperative evaluation. COMPARISON: None TECHNIQUE: Right knee, AP and lateral views FINDINGS: The components of the total knee arthroplasty exhibit satisfactory position and alignment. The revised tibial component has a elongated, cemented stem. No evidence of hardware loosening or periprosthetic fracture. Small joint effusion is present. Postoperative soft tissue swelling/edema around the knee with anterior skin annie in place. Soft tissue gas is observed deep to the superior annie. IMPRESSION: There are expected postoperative changes of a right total knee arthroplasty. The arthroplasty components exhibit satisfactory position and alignment. No acute periprosthetic fracture.
[2018-04-30 15:47] VITALS: BP 120/80
[2018-04-30 22:09] VITALS: BP 120/60
[2018-05-01 06:46] VITALS: BP 128/62
[2018-05-01 08:12] VITALS: BP 138/78
[2018-05-01 08:39] LABS: PT 16.7 SEC (9.4-12.5)
--- NOTE | 2018-05-01 11:42 | PN- Student ---
Aristides Mancuso 05/01/18 1125: Subjective Subjective: Some pain right knee, controlled with meds. OOB with PT. No bowel movements, but passed flatus. Reduced appetite. No chest pain, no shortness of breath, no calf pain. Patient anxious to be discharged Objective Objective: Vitals: Pulse 78 BP: 138/78 I/O's: not recorded Imaging: There are expected postoperative changes of a right total knee arthroplasty. The arthroplasty components exhibit satisfactory position and alignment. No acute periprosthetic fracture. Physical Exam: General: No acutre distress, alert and oriented Pulm: clear to auscultation\ Cardio: s1,s2,rrr Abdomen: obese, +bowel sounds, nontender Extremities: calves soft and non tender, 2+ DP/PT pulses. Plantar/dorsi flexion strenght 4+ on right and 5+ on left, straight leg raise strenght 3+ on right and 5+ on left. Dressing clean, dry and intact. minimal drainage from wound. Gross sensation intact Results Results: Laboratory Tests 05/01/18 0707: PT 16.7 H, INR 1.53 H 04/30/18 0703: PT 16.5 H, INR 1.51 H 04/29/18 0705: Anion Gap 10, Estimated GFR > 60, BUN/Creatinine Ratio 14.0, PT 11.7, INR 1.07, CBC w Diff NO MAN DIFF REQ, RBC 3.76 L, MCV 83.7, MCH 27.8, MCHC 33.2, RDW 15.4 H, MPV 8.6, Gran % 73.8, Lymphocytes % 15.5 L, Monocytes % 10.3 H, Eosinophils % 0.1, Basophils % 0.3, Absolute Granulocytes 7.3 H, Absolute Lymphocytes 1.5, Absolute Monocytes 1.0 H, Absolute Eosinophils 0, Absolute Basophils 0 Microbiology 04/28 1145 EXTREMITIE: Gross Specimen Examination - COMP 04/28 1145 EXTREMITIE: Gram Stain - COMP Assessment/Plan Assessment: 63 year old female POD 3 doing well with appropriate pain and strength on operative knee. Plan: Plan for DC continue home meds Continue antinausea plan Continue pain control plans Continue bowel regimine Continue DVT prophylaxis Bailey Floyd 05/01/18 1144: Addendum Addendum PT. LOOKS WELL. cOMFORTABLE ON CURRENT PAIN REGIMEN VITAL SIGNS STABLE ABDOMINAL EXAM IS BENIGN LEFT LE WITH INTACT NEUROVASCULAR EXAM S/P TKA REVISION PROGRESSING WELL WILL D/C HOME. I SPOKE WITH DR LORENZO, PLAN TO D/C HOME ON COUMADIN WITH FOLLOW UP PT/INR TOMORROW. BLOOD TO BE DRAWN BY [facility] NURSE AND DR LORENZO WILL FOLLOW INR RESULTS / COUMADIN ADJUSTEMENTS.
[2018-05-01] MEDS ORDERED: COLACE100 M1 PO (12:13)
[2018-05-01] MEDS ORDERED: PERCOCET 5-3251 EACH PO (12:13)
[2018-05-01] MEDS ORDERED: COUMADIN2.5 M1 PO (12:13)
[2018-05-01] MEDS ORDERED: MIRALAX17 G1 PO (12:13)
== END 2018-05-01 12:25 | disposition home health service (06) | DRG 467 ==
LOC: SDA 00:52 → ENRESERV 14:41 → ENTRNSPT 15:25 → EDTRNSPTSTS 15:29 → EDTRNSPT 15:29 → 2NA 15:40 → CMPTRNSPT 15:55 → ENPENDDIS 05-01 11:52 → 2NA 05-01 12:25 → ENTRNSPT 05-01 12:59 → EDTRNSPT 05-01 13:19 → EDTRNSPTSTS 05-01 13:19 → CMPTRNSPT 05-01 13:51
PROVIDERS: Nurse Practitioner; Physician Assistant Surgical
PROC: 0SPC0JZ Removal of Synthetic Substitute from Right Knee Joint, Open Approach (ICD-10-PCS; principal; 2018-04-28)
PROC: 0SRC0J9 Replacement of Right Knee Joint with Synthetic Substitute, Cemented, Open Approach (ICD-10-PCS; principal; 2018-04-28)
PROC: 3E0T3BZ Introduction of Anesthetic Agent into Peripheral Nerves and Plexi, Percutaneous Approach (ICD-10-PCS; principal; 2018-04-28)
DX: T84.032A Mechanical loosening of internal right knee prosthetic joint, initial encounter (principal); M86.68 Other chronic osteomyelitis, other site; J45.909 Unspecified asthma, uncomplicated; I10 Essential (primary) hypertension; E78.5 Hyperlipidemia, unspecified; K21.9 Gastro-esophageal reflux disease without esophagitis; G47.33 Obstructive sleep apnea (adult) (pediatric); M48.061 Spinal stenosis, lumbar region without neurogenic claudication; Z88.2 Allergy status to sulfonamides; Z79.51 Long term (current) use of inhaled steroids
CPT/HCPCS: 2NASP; 87070; 87075; 36415; 36592; 73560-RT; 82436; 87086; 88305; 97110-GO; 97116-GO; 97161-GP; 97530-GO; C1713; C9290; J0131; J1100; J2405; J2550; J3370; J3490; J7040

== ENCOUNTER 2018-05-13 13:16 | Emergency (ER) | payer OTHER ==
[~2018-05-13] VITALS: Ht 160 cm; Wt 127.0 kg
[~2018-05-13 13:16] MED LIST changes: +COLACE100 M1 PO; +COUMADIN2.5 M1 PO; +MIRALAX17 G1 PO
--- NOTE | 2018-05-13 15:11 | ED GENERAL ADULT ---
See Addendum History of Present Illness General Chief Complaint: General Adult Stated Complaint: SENT IN BY [facility] FOR REHAB PLACEMENT Source: patient Exam Limitations: no limitations Vital Signs & Intake/Output Vital Signs & Intake/Output Vital Signs Date Time Temp Pulse Resp B/P B/P Pulse O2 O2 Flow FiO2 Mean Ox Delivery Rate 05/13 1849 Room Air 05/13 1628 Room Air 05/13 1617 99.2 75 18 140/63 99 Room Air 05/13 1355 97.0 78 20 122/74 98 Room Air Allergies Coded Allergies: ceftriaxone (Intermediate, ITCHY, RED LINE UP ARM 04/17/18) sulfite (Intermediate, HIVES 04/17/18) Reconcile Medications Albuterol Sulfate (Proair Hfa) 90 MCG HFA.AER.AD 2 PUF INH AD PRN RESP. ( Reported) Calcium (Elemental-Fr Calcarb) (Calcium Carbonate) 600 MG CALCIUM (1,500 MG) TABLET 2 TAB PO DAILY SUPPLEMENT (Reported) Cetirizine HCl (Zyrtec) 10 MG TABLET 1 TAB PO QAM ALLERGIES (Reported) Cyclobenzaprine HCl 5 MG TABLET 1 TAB PO TID PRN MUSCLE SPASMS (Reported) Docusate Sodium (Colace) 100 MG CAPSULE 1 CAP PO BID CONSITPATION DISCONTINUE USE IF YOU DEVELOP LOOSE STOOL OR DIARRHEA Ergocalciferol (Vitamin D2) (Vitamin D2) 50,000 UNIT CAPSULE 1 CAP PO QSUN SUPPLEMENT (Reported) Esomeprazole (Nexium) 40 MG CAPSULE.DR 1 CAP PO QAM GI (Reported) Fluoxetine HCl 20 MG CAPSULE 1 CAP PO QAM MENTAL HEALTH (Reported) Fluticasone/Salmeterol (Advair 250-50 Diskus) 250 MCG-50 MCG/DOSE BLST.W.DEV 1 PUF INH BID RESP. (Reported) Hydrochlorothiazide 25 MG TABLET 1 TAB PO QAM BP (Reported) Lidocaine/Prilocaine (Lidocaine-Prilocaine Cream) 2.5 %-2.5 % CREAM..G. 1 NANCY TOP AD PRN BACK PAIN (Reported) Lisinopril 10 MG TABLET 1 TAB PO QAM BP (Reported) Montelukast Sodium 10 MG TABLET 1 TAB PO QPM RESP. (Reported) Morphine Sulfate (Morphine Sulfate ER) 30 MG TABLET.ER 1 TAB PO BIDP PRN PAIN (Reported) Multiple Vitamin (Multivitamins) 1 EACH TABLET 1 TAB PO QAM SUPPLEMENT ( Reported) Oxycodone HCl/Acetaminophen (Percocet 5-325 MG Tablet) 5 MG-325 MG TABLET 1-2 TAB PO Q4-6 PRN PAIN Polyethylene Glycol 3350 (Miralax) 17 GRAM POWD.PACK 1 PAC PO DAILY CONSTIPATION dissolve in water, DISCONTINUE USE IF YOU DEVELOP LOOSE STOOL OR DIARRHEA Pregabalin (Lyrica) 75 MG CAPSULE 1 CAP PO TID NERVE PAIN (Reported) Warfarin Sodium (Coumadin) 6 MG TABLET 1 TAB PO 1700 BLOOD THINNER (Reported) Triage Note: PT SENT TO ED FOR REHAB PLACEMENT. PT WITH RECENT RIGHT KNEE REVISION [address] MALONE. STATES SHE HAS A BROKEN TIBIA AND NEEDS REHAB. Triage Nurses Notes Reviewed? yes Onset: Gradual Duration: week(s): Timing: constant HPI: 63-year-old female with a history of peripheral neuropathy, hypertension, hyperlipidemia, asthma, anxiety, chronic back pain sent in by Dr. Malone ( ortho) for short-term rehabilitation placement. Patient underwent revision of her right knee prosthesis 2 weeks ago. She has had persistent pain to the anterior lower leg since the procedure. Has been undergoing home physical therapy since the procedure without any improvement. Patient had postop follow- up today, with x-ray imaging that showed a new tibial fracture. Patient denies trauma since her procedure. Denies numbness or paresthesias. (Carlos CROW,Ember) Past History Travel History Traveled to [place] past 21 day No Medical History Any Pertinent Medical History? 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 UNCLE FH: lung cancer, Onset: 60+. FH: pancreatic cancer, Onset: 60+. MOTHER FH: diabetes mellitus MOTHER Hx Contributory? No (Ember Russo) Review of Systems Review of Systems Constitutional: Reports: no symptoms. EENTM: Reports: no symptoms. Respiratory: Reports: no symptoms. Cardiovascular: Reports: no symptoms. GI: Reports: no symptoms. Genitourinary: Reports: no symptoms. Musculoskeletal: Reports: see HPI. Skin: Reports: no symptoms. Neurological/Psychological: Reports: no symptoms. Hematologic/Endocrine: Reports: no symptoms. Immunologic/Allergic: Reports: no symptoms. All Other Systems: Reviewed and Negative (Ember Russo) Physical Exam Physical Exam General Appearance: well developed/nourished, no apparent distress, alert, awake , comfortable Head: atraumatic, normal appearance Eyes: Bilateral: normal appearance. Neck: normal inspection Respiratory: normal breath sounds, lungs clear Cardiovascular: regular rate/rhythm Gastrointestinal: soft, non-tender Back: normal inspection Extremities: on exam of the right leg there is no erythema, edema, or increased warmth. There is diffuse tenderness to palpation over the anterior lower leg. There is also diffuse tenderness over the entire knee joint. Decreased range of motion. Sensation intact. Decreased motor strength. Distal pulses 2+. Neurologic/Psych: awake, alert, oriented x 3, normal mood/affect Skin: normal color, warm/dry Core Measures ACS in differential dx? No CVA/TIA Diagnosis: No Sepsis Present: No Sepsis Focused Exam Completed? No (Ember Russo) Progress Differential Diagnoses I considered the following diagnoses in my evaluation of the patient: [ Postoperative pain versus extremity fracture, low concern for DVT] Plan of Care: Orders Procedure Date/time Status Regular Diet 05/13 D Active PT Evaluate & Treat 05/13 1930 Active Add-on Test (ER Only) 05/13 1635 Active PROTHROMBIN TIME 05/13 1519 Complete URINALYSIS 05/13 1501 Complete TROPONIN LEVEL 05/13 1501 Complete COMPREHENSIVE METABOLIC PANEL 05/13 1501 Complete CBC WITHOUT DIFFERENTIAL 05/13 1501 Complete Current Medications Sig/J Luis Start time Last Medication Dose Stop Time Status Admin Budesonide/ 2 PUF QAM 05/14 09 UNVr Formoterol Fumarate (Symbicort) Fluoxetine HCl 20 MG QAM 05/14 900 UNVr (Prozac) Hydrochlorothiazide 25 MG QAM 05/14 900 UNVr (Hydrodiuril) Lisinopril 10 MG QAM 05/14 900 UNVr (Prinivil) Loratadine 10 MG QAM 05/14 900 UNVr (Claritin) Omeprazole 40 MG QAM 05/14 900 UNVr (Prilosec) Atorvastatin Calcium 20 MG QPM 05/13 2100 UNVr (Lipitor) Docusate Sodium 100 MG BID 05/13 2100 UNVr (Colace) Montelukast Sodium 10 MG QPM 05/13 2100 UNVr (Singulair) Morphine Sulfate 30 MG BID 05/13 2100 UNVr (Ms Contin) Pregabalin 75 MG TID 05/13 2100 UNVr (Lyrica) Senna/Docusate Sodium 1 TAB BID 05/13 2100 UNVr (Senokot S) Warfarin Sodium 6 MG QPM 05/13 2100 UNVr (Coumadin) Alprazolam 0.5 MG TIDPRN 05/13 164 UNVr (Xanax) 05/20 164 Cyclobenzaprine HCl 5 MG TIDPRN 05/13 164 UNVr (Flexeril 5MG Tab) Oxycodone/ 2 TAB Q4-6 PRN PRN 05/13 164 UNVr Acetaminophen (Percocet) Laboratory Tests 05/13/18 1856: Urine Color YEL, Urine Clarity CLEAR, Urine pH 6.0, Ur Specific [place] 1.010, Urine Protein NEG, Urine Ketones NEG, Urine Nitrite NEG, Urine Bilirubin NEG, Urine Urobilinogen 0.2, Ur Leukocyte Esterase TRACE H, Ur Microscopic SEDIMENT EXAMINED, Urine RBC RARE, Urine WBC 1-3 H, Ur Epithelial Cells RARE, Urine Crystals 1+ UR AC H, Urine Bacteria RARE H, Urine Hemoglobin NEG, Urine Glucose NEG 05/13/18 1519: Anion Gap 14, Estimated GFR > 60, BUN/Creatinine Ratio 20.0, Glucose 109 H, Calcium 10.3 H, Total Bilirubin 0.3, AST 29, ALT 23, Alkaline Phosphatase 85, Troponin I < 0.01, Total Protein 7.5, Albumin 4.4, Globulin 3.1, Albumin/ Globulin Ratio 1.4, PT 26.4 H, INR 2.40 H, CBC w Diff NO MAN DIFF REQ, RBC 4.15 L, MCV 83.3, MCH 28.1, MCHC 33.8, RDW 15.0 H, MPV 7.8, Gran % 66.7, Lymphocytes % 26.2, Monocytes % 6.1, Eosinophils % 0.7, Basophils % 0.3, Absolute Granulocytes 6.9 H, Absolute Lymphocytes 2.7, Absolute Monocytes 0.6, Absolute Eosinophils 0.1, Absolute Basophils 0 Labs unremarkable. Patient's INR is within range. Discussed with case management and patient will be held overnight in the emergency department for physical therapy evaluation in the morning, and then subsequent short-term rehabilitation placement. Initial ED EKG: none (Ember Russo) Departure Departure Disposition: STILL A PATIENT Condition: Stable Clinical Impression Primary Impression: Right tibial fracture Secondary Impressions: Post-operative pain Referrals: Jernigan Jose PEDERSEN (PCP/Family) Departure Forms: Customer Survey General Discharge Information (Ember Russo) PA/IT SUPPORT ANALYST Co-Sign Statement Statement: ED Attending supervision documentation- [x] I saw and evaluated the patient. I have also reviewed all the pertinent lab results and diagnostic results. I agree with the findings and the plan of care as documented in the PA's/IT SUPPORT ANALYST's documentation. [] I have reviewed the ED Record and agree with the PA's/IT SUPPORT ANALYST's documentation. [] Additions or exceptions (if any) to the PAs/IT SUPPORT ANALYST's note and plan are summarized below: [] (Kelvin Harper DO) Critical Care Note Critical Care Note Critical Care Time: non-applicable (Ember Russo)
[2018-05-13] MEDS ORDERED: COUMADIN6 M1 PO (15:13)
[2018-05-13 15:27] LABS: ABSOLUTE BASOPHIL COUNT 0 /CUMM (0.0-0.2); ABSOLUTE EOSINOPHIL COUNT 0.1 /CUMM (0.0-0.7); ABSOLUTE GRANULOCYTE CT 6.9 /CUMM (1.4-6.5); ABSOLUTE LYMPH COUNT 2.7 /CUMM (1.2-3.4); ABSOLUTE MONOCYTE COUNT 0.6 /CUMM (0.10-0.60); BASOPHIL % 0.3 % (0.0-2.0); EOSINOPHIL % 0.7 % (0-5); GRANULOCYTE % 66.7 % (42.2-75.2); HEMATOCRIT 34.6 % (37-47); MEAN CORPUSCULAR HGB 28.1 PG (27.0-31.0); MEAN CORPUSCULAR HGB CONC 33.8 G/DL (33.0-37.0); MEAN CORPUSCULAR VOLUME 83.3 FL (81.0-99.0); MEAN PLATELET VOLUME 7.8 FL (7.4-10.4); PLATELET COUNT 525 /CUMM (130-400); RED BLOOD CELL CT 4.15 /CUMM (4.20-5.40); WHITE BLOOD CELL COUNT 10.3 /CUMM (4.8-10.8)
[2018-05-13 17:09] LABS: PT 26.4 SEC (9.4-12.5)
[2018-05-14 14:08] VITALS: BP 130/62
== END 2018-05-14 18:31 ==
LOC: ERH 13:16
PROVIDERS: Physician Assistant Medical
DX: S82.201A Unspecified fracture of shaft of right tibia, initial encounter for closed fracture (principal); G89.18 Other acute postprocedural pain; Z79.01 Long term (current) use of anticoagulants; X58.XXXA Exposure to other specified factors, initial encounter; Y92.89 Other specified places as the place of occurrence of the external cause; Y93.89 Activity, other specified
CPT/HCPCS: 81001; 96374; 96376; 97161-GP; 97530-GP; J3490